=== PATIENT | male | born 1955 | race Caucasian/White ===

== ENCOUNTER 2020-10-14 15:43 | Inpatient (IN) | payer OTHER ==
[2020-10-14 18:52] LABS: VENOUS O2 SATURATION 72.5 % (70-80); VENOUS PCO2 44.3 mmHg (38-52); VENOUS PH 7.392 (7.310-7.410)
[2020-10-14 19:07] LABS: BASO % 0.3 % (0-2.0); EOS % 0.4 % (0-4.5); HEMATOCRIT 39.5 % (35.4-49); HEMOGLOBIN 13.4 GM/dL (11.7-16.9); LYMPH % 24.6 % (8-40); MCH 33.2 pg (25.7-33.7); MEAN CELL VOLUME 97.7 fl (80-96); NEUT % 63.7 % (42.8-82.8); RBC 4.05 M/mm3 (4.00-5.60); RDW 13.4 % (11.9-15.9); WHITE BLOOD COUNT 3.4 K/mm3 (4.0-10.0)
[2020-10-14 19:12] LABS: CHLORIDE 100 mmol/L (98-107); POTASSIUM 3.2 mmol/L (3.5-5.1); SODIUM 135 mmol/L (136-145)
[2020-10-14 19:13] LABS: INR 2.94 (0.83-1.09); PROTHROMBIN TIME (PATIENT) 35.1 SEC (9.7-13.0)
[2020-10-14 19:15] LABS: ACTIVATED PTT 39.6 SECONDS (25.2-36.5); CALCIUM 7.9 mg/dL (8.5-10.1)
[2020-10-14 19:16] LABS: ALBUMIN 3.3 g/dl (3.4-5.0); ANION GAP 6 MMOL/L (8-16); BLOOD UREA NITROGEN 14.7 mg/dL (7-18); CO2 30 mmol/L (21-32); GLUCOSE,RANDOM 92 mg/dL (74-106)
[2020-10-14 19:19] LABS: BILIRUBIN,DIRECT 0.1 mg/dL (0.0-0.2); CREATININE 1.2 mg/dL (0.55-1.3); SGOT/AST 63 U/L (15-37); SGPT/ALT 36 U/L (13-61)
[2020-10-14 19:20] LABS: BILIRUBIN,TOTAL 0.3 mg/dL (0.2-1)
[2020-10-14 19:21] LABS: ALK PHOS 103 U/L (45-117); N-TERMINAL BNP 849.6 pg/ml (5-125); TOT PROT 7.7 g/dl (6.4-8.2)
[2020-10-14 19:31] LABS: PLATELET COUNT 176 K/MM3 (134-434); PLATELET ESTIMATE ADEQUATE
[2020-10-14] MEDS ORDERED: SODIUM CHLORIDE 0.9% 500 ML INFUS.BAG IV ONE (19:44)
[2020-10-14] MEDS ORDERED: ACETAMINOPHEN 1000 MG/100 ML VIAL (NON FORMULARY) IVPB ONE (19:44)
[2020-10-14] MEDS ORDERED: ACETAMINOPHEN INJECTION 100 ML IVPB ONE (19:50)
[2020-10-14] MEDS ORDERED: POTASSIUM CHLORIDE ORAL LIQUID 20 MEQ/15 ML PO ONE (20:26)
[2020-10-14] MEDS ORDERED: ENOXAPARIN NA (PORCINE) 40 MG/0.4 ML DISP.SYRIN SQ SCH (20:30)
[2020-10-14 20:53] LABS: LDH 249 U/L (87-246)
[2020-10-14] MEDS ORDERED: ATORVASTATIN CA 20 MG TABLET (FP) ONE (21:34)
[2020-10-14] MEDS ORDERED: PHENobarbital 30 MG TABLET ONE (21:34)
[2020-10-14] MEDS ORDERED: ASCORBIC ACID 500 MG TABLET (FP) ONE (21:34)
[2020-10-14] MEDS ORDERED: POTASSIUM CHLORIDE ORAL LIQUID 20 MEQ/15 ML ONE (21:35)
[2020-10-14] MEDS ORDERED: carBAMazepine 200 MG TABLET ONE (21:35)
[2020-10-14] MEDS ORDERED: ZINC SULFATE 220 MG CAPSULE (FP) ONE (21:35)
[2020-10-14] MEDS: ZINC SULFATE 220 MG CAPSULE (FP) PO SCH (21:48)
[2020-10-14] MEDS: ATORVASTATIN CA 20 MG TABLET (FP) PO SCH (21:48)
[2020-10-14] MEDS: carBAMazepine 200 MG TABLET PO SCH (21:49)
[2020-10-14] MEDS: ASCORBIC ACID 500 MG TABLET (FP) PO SCH (21:49)
[2020-10-14] MEDS: PHENobarbital 30 MG TABLET PO SCH (21:49)
[2020-10-15 04:59] VITALS: BMI 65.9
[2020-10-15 05:15] LABS: INR 2.76 (0.83-1.09)
[2020-10-15] MEDS: FUROSEMIDE 40 MG TABLET (FP) PO SCH ×2 (06:08→14:41)
[2020-10-15] MEDS: carBAMazepine 200 MG TABLET PO SCH ×3 (06:08→21:43)
[2020-10-15 09:20] LABS: HEMATOCRIT 36.6 % (35.4-49); HEMOGLOBIN 12.6 GM/dL (11.7-16.9); MCH 33.3 pg (25.7-33.7); MCHC 34.4 g/dl (32.0-35.9); MEAN CELL VOLUME 96.8 fl (80-96); MEAN PLT VOLUME 7.6 fl (7.5-11.1); PLATELET COUNT 145 K/MM3 (134-434); RBC 3.78 M/mm3 (4.00-5.60); RDW 13.5 % (11.9-15.9); WHITE BLOOD COUNT 3.4 K/mm3 (4.0-10.0)
[2020-10-15] MEDS ORDERED: PT OWN MED DRAWER 7, Y5N ONE (09:21)
[2020-10-15] MEDS: ZINC SULFATE 220 MG CAPSULE (FP) PO SCH ×2 (09:39→21:41)
[2020-10-15] MEDS: ASCORBIC ACID 500 MG TABLET (FP) PO SCH ×2 (09:39→21:42)
[2020-10-15] MEDS: CYANOCOBALAMIN 1,000 MCG TABLET (FP) PO SCH (09:39)
[2020-10-15] MEDS: CLOPIDOGREL BISULFATE 75 MG TABLET (FP) PO SCH (09:39)
[2020-10-15] MEDS: CHOLECALCIFEROL (VIT D3) 1,000 UNIT (25 MCG) TABLET PO SCH (09:39)
[2020-10-15 09:43] LABS: POTASSIUM 3.4 mmol/L (3.5-5.1)
[2020-10-15 09:52] LABS: BLOOD UREA NITROGEN 13.2 mg/dL (7-18); CALCIUM 7.5 mg/dL (8.5-10.1)
[2020-10-15 09:56] LABS: CREATININE 1.1 mg/dL (0.55-1.3)
[2020-10-15] MEDS: DIGOXIN 0.25 MG TABLET (FP) PO SCH (11:31)
[2020-10-15] MEDS ORDERED: DEXTROSE 5%-WATER 100 ML IVPB ONE (14:31)
[2020-10-15] MEDS: CEFTRIAXONE 2 GM in DEXTROSE 5%-WATER 2 GM/100 ML BAG IVPB SCH (14:44)
[2020-10-15] MEDS ORDERED: REMDESIVIR 200 MG in SODIUM CHLORIDE 210 ML IVPB ONE (17:00)
[2020-10-15] MEDS: DEXAMETHASONE SOD PHOSPHATE 10 MG/1 ML VIAL IVPUSH SCH (19:49)
[2020-10-15] MEDS: VANCOMYCIN PREMIX 1.5 GM 1,500 MG/300 ML BAG IVPB SCH (19:49)
[2020-10-15] MEDS: PANTOPRAZOLE 40 MG TABLET PO SCH (19:51)
[2020-10-15] MEDS: PHENobarbital 30 MG TABLET PO SCH (21:42)
[2020-10-15] MEDS: ATORVASTATIN CA 20 MG TABLET (FP) PO SCH (21:43)
[2020-10-16] MEDS: VANCOMYCIN PREMIX 1.5 GM 1,500 MG/300 ML BAG IVPB SCH ×2 (02:07→15:01)
[2020-10-16] MEDS: carBAMazepine 200 MG TABLET PO SCH ×3 (06:25→22:16)
[2020-10-16] MEDS: FUROSEMIDE 40 MG TABLET (FP) PO SCH ×2 (06:25→15:01)
[2020-10-16 08:32] LABS: HEMATOCRIT 38.3 % (35.4-49); HEMOGLOBIN 13.3 GM/dL (11.7-16.9); MCH 33.6 pg (25.7-33.7); MCHC 34.6 g/dl (32.0-35.9); MEAN CELL VOLUME 97.2 fl (80-96); MEAN PLT VOLUME 7.6 fl (7.5-11.1); PLATELET COUNT 127 K/MM3 (134-434); RBC 3.94 M/mm3 (4.00-5.60); RDW 13.6 % (11.9-15.9); WHITE BLOOD COUNT 3.3 K/mm3 (4.0-10.0)
[2020-10-16 09:04] LABS: POTASSIUM 3.3 mmol/L (3.5-5.1)
[2020-10-16 09:13] LABS: ALBUMIN 2.9 g/dl (3.4-5.0); CALCIUM 7.4 mg/dL (8.5-10.1)
[2020-10-16 09:14] LABS: BILIRUBIN,TOTAL 0.4 mg/dL (0.2-1); TOT PROT 7.1 g/dl (6.4-8.2)
[2020-10-16 09:30] LABS: BLOOD UREA NITROGEN 11.6 mg/dL (7-18)
[2020-10-16] MEDS ORDERED: DEXTROSE 5%-WATER 100 ML IVPB ONE (09:36)
[2020-10-16] MEDS ORDERED: PT OWN MED DRAWER 7, Y5N ONE ×2 (09:36→21:59)
[2020-10-16] MEDS: ZINC SULFATE 220 MG CAPSULE (FP) PO SCH ×2 (10:04→22:18)
[2020-10-16] MEDS: CEFTRIAXONE 2 GM in DEXTROSE 5%-WATER 2 GM/100 ML BAG IVPB SCH (10:04)
[2020-10-16] MEDS: DEXAMETHASONE SOD PHOSPHATE 10 MG/1 ML VIAL IVPUSH SCH (10:04)
[2020-10-16] MEDS: PANTOPRAZOLE 40 MG TABLET PO SCH (10:05)
[2020-10-16] MEDS: CYANOCOBALAMIN 1,000 MCG TABLET (FP) PO SCH (10:05)
[2020-10-16] MEDS: CLOPIDOGREL BISULFATE 75 MG TABLET (FP) PO SCH (10:05)
[2020-10-16] MEDS: CHOLECALCIFEROL (VIT D3) 1,000 UNIT (25 MCG) TABLET PO SCH (10:06)
[2020-10-16] MEDS: DIGOXIN 0.25 MG TABLET (FP) PO SCH (10:06)
[2020-10-16] MEDS: ASCORBIC ACID 500 MG TABLET (FP) PO SCH ×2 (10:06→22:17)
[2020-10-16] MEDS: REMDESIVIR 100 MG in SODIUM CHLORIDE 230 ML IVPB SCH (17:22)
[2020-10-16] MEDS ORDERED: POTASSIUM CHLORIDE TABS 20 MEQ TABLET.ER (FP) PO ONE (19:14)
[2020-10-16] MEDS: PHENobarbital 30 MG TABLET PO SCH (22:17)
[2020-10-16] MEDS: ATORVASTATIN CA 20 MG TABLET (FP) PO SCH (22:17)
[2020-10-16] MEDS: PRAMIPEXOLE DIHYDROCHLORIDE 0.25 MG TABLET PO SCH (22:17)
[2020-10-17] MEDS ORDERED: PT OWN MED DRAWER 7, Y5N ONE ×3 (05:33→21:04)
[2020-10-17] MEDS: carBAMazepine 200 MG TABLET PO SCH ×3 (05:37→21:09)
[2020-10-17] MEDS: FUROSEMIDE 40 MG TABLET (FP) PO SCH ×2 (05:37→14:52)
[2020-10-17] MEDS ORDERED: DEXTROSE 5%-WATER 100 ML IVPB ONE (10:32)
[2020-10-17] MEDS: CEFTRIAXONE 2 GM in DEXTROSE 5%-WATER 2 GM/100 ML BAG IVPB SCH (10:47)
[2020-10-17] MEDS: PRAMIPEXOLE DIHYDROCHLORIDE 0.25 MG TABLET PO SCH ×2 (10:47→21:09)
[2020-10-17] MEDS: CYANOCOBALAMIN 1,000 MCG TABLET (FP) PO SCH (10:47)
[2020-10-17] MEDS: CLOPIDOGREL BISULFATE 75 MG TABLET (FP) PO SCH (10:47)
[2020-10-17] MEDS: PANTOPRAZOLE 40 MG TABLET PO SCH (10:47)
[2020-10-17] MEDS: ZINC SULFATE 220 MG CAPSULE (FP) PO SCH ×2 (10:47→21:09)
[2020-10-17] MEDS: ASCORBIC ACID 500 MG TABLET (FP) PO SCH ×2 (10:47→21:09)
[2020-10-17] MEDS: DEXAMETHASONE SOD PHOSPHATE 10 MG/1 ML VIAL IVPUSH SCH (10:48)
[2020-10-17] MEDS: CHOLECALCIFEROL (VIT D3) 1,000 UNIT (25 MCG) TABLET PO SCH (10:48)
[2020-10-17] MEDS: DIGOXIN 0.25 MG TABLET (FP) PO SCH (10:50)
[2020-10-17 13:06] LABS: BASO % 0.2 % (0-2.0); HEMATOCRIT 38.5 % (35.4-49); HEMOGLOBIN 13.3 GM/dL (11.7-16.9); MCH 33.6 pg (25.7-33.7); MCHC 34.5 g/dl (32.0-35.9); MEAN CELL VOLUME 97.3 fl (80-96); MONO % 6.5 % (3.8-10.2); NEUT % 83.3 % (42.8-82.8); PLATELET COUNT 150 K/MM3 (134-434); RBC 3.96 M/mm3 (4.00-5.60); RDW 13.4 % (11.9-15.9)
[2020-10-17 13:13] LABS: INR 1.9 (0.83-1.09); PROTHROMBIN TIME (PATIENT) 22.6 SEC (9.7-13.0)
[2020-10-17 13:15] LABS: ACTIVATED PTT 33.6 SECONDS (25.2-36.5)
[2020-10-17 13:49] LABS: POTASSIUM 3.1 mmol/L (3.5-5.1)
[2020-10-17 13:51] LABS: ALBUMIN 2.9 g/dl (3.4-5.0); BLOOD UREA NITROGEN 13.8 mg/dL (7-18); CALCIUM 7.8 mg/dL (8.5-10.1)
[2020-10-17 13:54] LABS: CREATININE 1.1 mg/dL (0.55-1.3)
[2020-10-17 13:56] LABS: BILIRUBIN,TOTAL 0.3 mg/dL (0.2-1); TOT PROT 6.9 g/dl (6.4-8.2)
[2020-10-17] MEDS ORDERED: POTASSIUM CHLORIDE TABS 20 MEQ TABLET.ER (FP) PO SCH (14:30)
[2020-10-17] MEDS: REMDESIVIR 100 MG in SODIUM CHLORIDE 230 ML IVPB SCH (17:21)
[2020-10-17] MEDS ORDERED: WARFARIN NA 5 MG TABLET PO SCH (18:00)
[2020-10-17] MEDS: PHENobarbital 30 MG TABLET PO SCH (21:08)
[2020-10-17] MEDS: ATORVASTATIN CA 20 MG TABLET (FP) PO SCH (21:09)
[2020-10-17] MEDS: POTASSIUM CHLORIDE TABS 20 MEQ TABLET.ER (FP) PO SCH (21:09)
[2020-10-18] MEDS: carBAMazepine 200 MG TABLET PO SCH ×3 (06:17→22:21)
[2020-10-18] MEDS: FUROSEMIDE 40 MG TABLET (FP) PO SCH ×2 (06:17→14:50)
[2020-10-18] MEDS ORDERED: DEXTROSE 5%-WATER 100 ML IVPB ONE (09:10)
[2020-10-18] MEDS ORDERED: PT OWN MED DRAWER 7, Y5N ONE ×2 (09:10→18:42)
[2020-10-18 09:24] LABS: BASO % 0.2 % (0-2.0); HEMATOCRIT 38.4 % (35.4-49); HEMOGLOBIN 13.3 GM/dL (11.7-16.9); MCH 33.7 pg (25.7-33.7); MCHC 34.8 g/dl (32.0-35.9); MEAN CELL VOLUME 96.9 fl (80-96); MONO % 9.5 % (3.8-10.2); NEUT % 63.3 % (42.8-82.8); PLATELET COUNT 149 K/MM3 (134-434); RBC 3.96 M/mm3 (4.00-5.60); RDW 13.5 % (11.9-15.9)
[2020-10-18] MEDS: ZINC SULFATE 220 MG CAPSULE (FP) PO SCH ×2 (09:24→22:18)
[2020-10-18] MEDS: PRAMIPEXOLE DIHYDROCHLORIDE 0.25 MG TABLET PO SCH ×2 (09:25→22:18)
[2020-10-18] MEDS: ASCORBIC ACID 500 MG TABLET (FP) PO SCH ×2 (09:25→22:18)
[2020-10-18] MEDS: CYANOCOBALAMIN 1,000 MCG TABLET (FP) PO SCH (09:25)
[2020-10-18] MEDS: PANTOPRAZOLE 40 MG TABLET PO SCH (09:25)
[2020-10-18] MEDS: CLOPIDOGREL BISULFATE 75 MG TABLET (FP) PO SCH (09:25)
[2020-10-18] MEDS: POTASSIUM CHLORIDE TABS 20 MEQ TABLET.ER (FP) PO SCH (09:25)
[2020-10-18] MEDS: CHOLECALCIFEROL (VIT D3) 1,000 UNIT (25 MCG) TABLET PO SCH (09:25)
[2020-10-18] MEDS: CEFTRIAXONE 2 GM in DEXTROSE 5%-WATER 2 GM/100 ML BAG IVPB SCH (09:26)
[2020-10-18] MEDS: DIGOXIN 0.25 MG TABLET (FP) PO SCH (09:26)
[2020-10-18] MEDS: DEXAMETHASONE SOD PHOSPHATE 10 MG/1 ML VIAL IVPUSH SCH (09:26)
[2020-10-18 09:44] LABS: POTASSIUM 3.1 mmol/L (3.5-5.1)
[2020-10-18 09:46] LABS: CALCIUM 7.7 mg/dL (8.5-10.1)
[2020-10-18 09:47] LABS: ALBUMIN 2.9 g/dl (3.4-5.0); BLOOD UREA NITROGEN 14.7 mg/dL (7-18)
[2020-10-18 09:50] LABS: CREATININE 0.9 mg/dL (0.55-1.3)
[2020-10-18 09:51] LABS: BILIRUBIN,TOTAL 0.9 mg/dL (0.2-1)
[2020-10-18 09:52] LABS: TOT PROT 6.9 g/dl (6.4-8.2)
[2020-10-18] MEDS ORDERED: POTASSIUM CHLORIDE TABS 20 MEQ TABLET.ER (FP) PO ONE (09:57)
[2020-10-18] MEDS: REMDESIVIR 100 MG in SODIUM CHLORIDE 230 ML IVPB SCH (16:49)
[2020-10-18] MEDS ORDERED: WARFARIN NA 10 MG TABLET PO SCH (18:00)
[2020-10-18] MEDS ORDERED: WARFARIN NA 10 MG TABLET ONE (18:03)
[2020-10-18] MEDS ORDERED: WARFARIN NA 2 MG TABLET ONE ×2 (18:03→18:04)
[2020-10-18] MEDS: WARFARIN NA PO SCH (18:21)
[2020-10-18] MEDS: POTASSIUM CHLORIDE ORAL LIQUID 20 MEQ/15 ML PO SCH ×2 (22:14→22:15)
[2020-10-18] MEDS: ATORVASTATIN CA 20 MG TABLET (FP) PO SCH (22:18)
[2020-10-18] MEDS: PHENobarbital 30 MG TABLET PO SCH (22:18)
[2020-10-19] MEDS: FUROSEMIDE 40 MG TABLET (FP) PO SCH ×2 (05:26→13:19)
[2020-10-19] MEDS: carBAMazepine 200 MG TABLET PO SCH ×3 (05:26→22:09)
[2020-10-19] MEDS ORDERED: PT OWN MED DRAWER 7, Y5N ONE ×4 (10:01→22:03)
[2020-10-19] MEDS ORDERED: DEXTROSE 5%-WATER 100 ML IVPB ONE ×2 (10:01→10:22)
[2020-10-19] MEDS: CYANOCOBALAMIN 1,000 MCG TABLET (FP) PO SCH (10:33)
[2020-10-19] MEDS: PANTOPRAZOLE 40 MG TABLET PO SCH (10:33)
[2020-10-19] MEDS: PRAMIPEXOLE DIHYDROCHLORIDE 0.25 MG TABLET PO SCH ×2 (10:33→22:07)
[2020-10-19] MEDS: ZINC SULFATE 220 MG CAPSULE (FP) PO SCH ×2 (10:33→22:07)
[2020-10-19] MEDS: ASCORBIC ACID 500 MG TABLET (FP) PO SCH ×2 (10:33→22:07)
[2020-10-19] MEDS: DEXAMETHASONE SOD PHOSPHATE 10 MG/1 ML VIAL IVPUSH SCH (10:34)
[2020-10-19] MEDS: POTASSIUM CHLORIDE ORAL LIQUID 20 MEQ/15 ML PO SCH ×2 (10:34→21:53)
[2020-10-19] MEDS: CLOPIDOGREL BISULFATE 75 MG TABLET (FP) PO SCH (10:34)
[2020-10-19] MEDS: DIGOXIN 0.25 MG TABLET (FP) PO SCH (10:34)
[2020-10-19] MEDS: CHOLECALCIFEROL (VIT D3) 1,000 UNIT (25 MCG) TABLET PO SCH (10:35)
[2020-10-19] MEDS: CEFTRIAXONE 2 GM in DEXTROSE 5%-WATER 2 GM/100 ML BAG IVPB SCH (10:35)
[2020-10-19 10:58] LABS: BASO % 0.4 % (0-2.0); EOS % 0.1 % (0-4.5); HEMATOCRIT 38.5 % (35.4-49); HEMOGLOBIN 13.4 GM/dL (11.7-16.9); LYMPH % 33.7 % (8-40); MCH 33.4 pg (25.7-33.7); MCHC 34.8 g/dl (32.0-35.9); MEAN CELL VOLUME 95.9 fl (80-96); MEAN PLT VOLUME 7.9 fl (7.5-11.1); MONO % 8.1 % (3.8-10.2); NEUT % 57.7 % (42.8-82.8); PLATELET COUNT 183 K/MM3 (134-434); RBC 4.02 M/mm3 (4.00-5.60); RDW 13.2 % (11.9-15.9); WHITE BLOOD COUNT 4.7 K/mm3 (4.0-10.0)
[2020-10-19 11:09] LABS: INR 2.26 (0.83-1.09); PROTHROMBIN TIME (PATIENT) 26.7 SEC (9.7-13.0)
[2020-10-19 11:29] LABS: POTASSIUM 3.3 mmol/L (3.5-5.1)
[2020-10-19 11:34] LABS: BLOOD UREA NITROGEN 16.8 mg/dL (7-18)
[2020-10-19 11:40] LABS: ALBUMIN 2.8 g/dl (3.4-5.0)
[2020-10-19 11:41] LABS: BILIRUBIN,TOTAL 0.7 mg/dL (0.2-1); TOT PROT 6.7 g/dl (6.4-8.2)
[2020-10-19] MEDS: REMDESIVIR 100 MG in SODIUM CHLORIDE 230 ML IVPB SCH (16:36)
[2020-10-19] MEDS ORDERED: WARFARIN NA 2 MG TABLET ONE (17:45)
[2020-10-19] MEDS ORDERED: WARFARIN NA 10 MG TABLET ONE (17:45)
[2020-10-19] MEDS ORDERED: POTASSIUM CHLORIDE TABS 20 MEQ TABLET.ER (FP) PO ONE (18:18)
[2020-10-19] MEDS: WARFARIN NA PO SCH (18:45)
[2020-10-19] MEDS: ATORVASTATIN CA 20 MG TABLET (FP) PO SCH (22:07)
[2020-10-19] MEDS: PHENobarbital 30 MG TABLET PO SCH (22:08)
[2020-10-20] MEDS: carBAMazepine 200 MG TABLET PO SCH ×3 (06:05→21:04)
[2020-10-20] MEDS: FUROSEMIDE 40 MG TABLET (FP) PO SCH ×2 (06:06→13:10)
[2020-10-20] MEDS ORDERED: PT OWN MED DRAWER 7, Y5N ONE ×3 (09:56→20:31)
[2020-10-20] MEDS ORDERED: DEXTROSE 5%-WATER 100 ML IVPB ONE (09:57)
[2020-10-20 10:02] LABS: BASO % 0.2 % (0-2.0); EOS % 0.1 % (0-4.5); HEMATOCRIT 38.2 % (35.4-49); HEMOGLOBIN 13.2 GM/dL (11.7-16.9); MCH 33.3 pg (25.7-33.7); MCHC 34.7 g/dl (32.0-35.9); MEAN PLT VOLUME 8.1 fl (7.5-11.1); MONO % 9.2 % (3.8-10.2); NEUT % 57.5 % (42.8-82.8); PLATELET COUNT 226 K/MM3 (134-434); RBC 3.98 M/mm3 (4.00-5.60); RDW 13.6 % (11.9-15.9); WHITE BLOOD COUNT 5.4 K/mm3 (4.0-10.0)
[2020-10-20 10:03] LABS: POTASSIUM 3.6 mmol/L (3.5-5.1)
[2020-10-20 10:05] LABS: INR 3.37 (0.83-1.09)
[2020-10-20] MEDS: POTASSIUM CHLORIDE ORAL LIQUID 20 MEQ/15 ML PO SCH ×2 (10:09→21:04)
[2020-10-20] MEDS: CEFTRIAXONE 2 GM in DEXTROSE 5%-WATER 2 GM/100 ML BAG IVPB SCH (10:09)
[2020-10-20] MEDS: CYANOCOBALAMIN 1,000 MCG TABLET (FP) PO SCH (10:10)
[2020-10-20] MEDS: ASCORBIC ACID 500 MG TABLET (FP) PO SCH ×2 (10:10→21:04)
[2020-10-20] MEDS: DEXAMETHASONE SOD PHOSPHATE 10 MG/1 ML VIAL IVPUSH SCH (10:10)
[2020-10-20] MEDS: PRAMIPEXOLE DIHYDROCHLORIDE 0.25 MG TABLET PO SCH ×2 (10:10→21:04)
[2020-10-20] MEDS: ZINC SULFATE 220 MG CAPSULE (FP) PO SCH ×2 (10:10→21:03)
[2020-10-20] MEDS: PANTOPRAZOLE 40 MG TABLET PO SCH (10:10)
[2020-10-20 10:11] LABS: CALCIUM 8.2 mg/dL (8.5-10.1)
[2020-10-20] MEDS: DIGOXIN 0.25 MG TABLET (FP) PO SCH (10:11)
[2020-10-20] MEDS: CLOPIDOGREL BISULFATE 75 MG TABLET (FP) PO SCH (10:11)
[2020-10-20] MEDS: CHOLECALCIFEROL (VIT D3) 1,000 UNIT (25 MCG) TABLET PO SCH (10:11)
[2020-10-20 10:15] LABS: CREATININE 0.9 mg/dL (0.55-1.3)
[2020-10-20] MEDS ORDERED: WARFARIN NA 10 MG TABLET PO SCH (18:00)
[2020-10-20] MEDS: ATORVASTATIN CA 20 MG TABLET (FP) PO SCH (21:04)
[2020-10-20] MEDS: PHENobarbital 30 MG TABLET PO SCH (21:04)
[2020-10-21] MEDS ORDERED: PT OWN MED DRAWER 7, Y5N ONE ×5 (04:56→19:53)
[2020-10-21] MEDS: CEPHALEXIN MONOHYDRATE 500 MG CAPSULE (UD) PO SCH ×3 (05:03→18:45)
[2020-10-21] MEDS: carBAMazepine 200 MG TABLET PO SCH ×2 (05:03→13:46)
[2020-10-21] MEDS: FUROSEMIDE 40 MG TABLET (FP) PO SCH ×2 (05:03→13:46)
[2020-10-21] MEDS: PANTOPRAZOLE 40 MG TABLET PO SCH (09:57)
[2020-10-21] MEDS: PRAMIPEXOLE DIHYDROCHLORIDE 0.25 MG TABLET PO SCH (09:57)
[2020-10-21] MEDS: CYANOCOBALAMIN 1,000 MCG TABLET (FP) PO SCH (09:57)
[2020-10-21] MEDS: POTASSIUM CHLORIDE ORAL LIQUID 20 MEQ/15 ML PO SCH (09:57)
[2020-10-21] MEDS: CHOLECALCIFEROL (VIT D3) 1,000 UNIT (25 MCG) TABLET PO SCH (09:57)
[2020-10-21] MEDS: ASCORBIC ACID 500 MG TABLET (FP) PO SCH (09:57)
[2020-10-21] MEDS: CLOPIDOGREL BISULFATE 75 MG TABLET (FP) PO SCH (09:57)
[2020-10-21] MEDS: ZINC SULFATE 220 MG CAPSULE (FP) PO SCH (09:57)
[2020-10-21] MEDS: DEXAMETHASONE SOD PHOSPHATE 10 MG/1 ML VIAL IVPUSH SCH (09:59)
[2020-10-21] MEDS: DIGOXIN 0.25 MG TABLET (FP) PO SCH (10:08)
[2020-10-21 10:39] LABS: PROTHROMBIN TIME (PATIENT) 52.8 SEC (9.7-13.0)
[2020-10-21 12:23] LABS: INR 4.56 (0.83-1.09)
[2020-10-21] MEDS ORDERED: BENZOCAINE/MENTH/CETYLPYRD CL 1 EACH LOZENGE MM PRN (14:39)
[2020-10-21 16:02] VITALS: BP 106/54
[2020-10-21 19:50] VITALS: PULSE 76; TEMP 97.9
== END 2020-10-21 20:03 | DRG 177 ==
LOC: JER 15:43 → JERBED 19:32 → J5S 23:26
PROVIDERS: ADMIT Hospitalist; ATTEND Internal Medicine
PROC: XW033E5 Introduction of Remdesivir Anti-infective into Peripheral Vein, Percutaneous Approach, New Technology Group 5 (ICD-10-PCS; principal; 2020-10-15)
DX: U07.1 COVID-19 (principal); J12.82 Pneumonia due to coronavirus disease 2019; J96.01 Acute respiratory failure with hypoxia; L03.115 Cellulitis of right lower limb; L03.116 Cellulitis of left lower limb; I48.21 Permanent atrial fibrillation; Z68.44 Body mass index [BMI] 60.0-69.9, adult; E87.2 Acidosis; I50.32 Chronic diastolic (congestive) heart failure; L97.518 Non-pressure chronic ulcer of other part of right foot with other specified severity; G40.909 Epilepsy, unspecified, not intractable, without status epilepticus; E66.01 Morbid (severe) obesity due to excess calories; J44.9 Chronic obstructive pulmonary disease, unspecified; I10 Essential (primary) hypertension; I87.2 Venous insufficiency (chronic) (peripheral); I25.10 Atherosclerotic heart disease of native coronary artery without angina pectoris; E78.5 Hyperlipidemia, unspecified; I25.2 Old myocardial infarction; R00.0 Tachycardia, unspecified; E87.6 Hypokalemia; I11.0 Hypertensive heart disease with heart failure; G47.33 Obstructive sleep apnea (adult) (pediatric); G56.01 Carpal tunnel syndrome, right upper limb; Z99.81 Dependence on supplemental oxygen; B95.4 Other streptococcus as the cause of diseases classified elsewhere
CPT/HCPCS: 36415; 71045-TC-FY; 80048; 80053; 80162; 80184; 82248; 82550; 82553; 82728; 82803; 83605; 83615; 83880; 84439; 84443; 84481; 84484; 85025; 85027; 85379; 85610; 85730; 86140; 86769; 87040; 87086; 87186; 87804; 93005; 93010; 97116-GP; 97162-GP; 99285-25; C9399; C9803; J0131; J1100; U0003

== ENCOUNTER 2023-03-20 16:45 | Inpatient (IN) | payer OTHER ==
[2023-03-20] MEDS ORDERED: FUROSEMIDE 40 MG/4 ML INJECTABLE VIAL IVPUSH ONE (18:15)
[2023-03-20] MEDS ORDERED: AZITHROMYCIN IVPB 500 MG in DEXTROSE 5%-WATER - 250 ML IVPB ONE (19:58)
[2023-03-20] MEDS ORDERED: CEFTRIAXONE 1 GM in DEXTROSE 5%-WATER - 100 ML IVPB ONE (19:58)
[2023-03-20] MEDS ORDERED: FUROSEMIDE 40 MG/4 ML INJECTABLE VIAL ONE ×2 (20:50→23:11)
[2023-03-20] MEDS ORDERED: AZITHROMYCIN IVPB 500 MG/250 ML BAG IVPB ONE (20:50)
[2023-03-20] MEDS ORDERED: CEFTRIAXONE 1 GM/50 ML BAG ONE (20:50)
[2023-03-20 21:06] LABS: BASO % 0.6 % (0-2.0); HEMATOCRIT 37.3 % (35.4-49); HEMOGLOBIN 12.8 GM/dL (11.7-16.9); LYMPH % 20.2 % (8-40); MCH 33.3 pg (25.7-33.7); MCHC 34.3 g/dl (32.0-35.9); MEAN PLT VOLUME 7.3 fl (7.5-11.1); MONO % 7.5 % (3.8-10.2); NEUT % 70.7 % (42.8-82.8); PLATELET COUNT 253 10^3/uL (134-434); RBC 3.85 M/mm3 (4.00-5.60); WHITE BLOOD COUNT 10.3 K/mm3 (4.0-10.0)
[2023-03-20] MEDS ORDERED: ACETAMINOPHEN 1000 MG/100 ML BAG IVPB ONE (21:41)
[2023-03-20] MEDS ORDERED: ACETAMINOPHEN INJECTION 100 ML IVPB ONE (21:54)
[2023-03-20 21:57] LABS: POTASSIUM 3.7 mmol/L (3.5-5.1)
[2023-03-20 21:58] LABS: CALCIUM 8.3 mg/dL (8.5-10.1)
[2023-03-20 21:59] LABS: ALBUMIN 3.2 g/dl (3.4-5.0); BLOOD UREA NITROGEN 13.8 mg/dL (7-18)
[2023-03-20 22:02] LABS: CREATININE 0.9 mg/dL (0.55-1.3)
[2023-03-20 22:04] LABS: BILIRUBIN,TOTAL 0.5 mg/dL (0.2-1); TOT PROT 7.5 g/dl (6.4-8.2)
[2023-03-20 22:07] LABS: N-TERMINAL BNP 980.2 pg/ml (5-125)
[2023-03-20] MEDS ORDERED: PHENobarbital 30 MG TABLET ONE (23:10)
[2023-03-20] MEDS ORDERED: WARFARIN NA 5 MG TABLET ONE (23:10)
[2023-03-20] MEDS ORDERED: carBAMazepine 200 MG TABLET ONE (23:11)
[2023-03-20] MEDS ORDERED: ACETAMINOPHEN 325 MG TABLET (FP) ONE (23:11)
[2023-03-20 23:22] LABS: BASO % 0.3 % (0-2.0); EOS % 1.2 % (0-4.5); HEMATOCRIT 35.2 % (35.4-49); HEMOGLOBIN 11.9 GM/dL (11.7-16.9); LYMPH % 21.6 % (8-40); MCH 32.8 pg (25.7-33.7); MCHC 33.9 g/dl (32.0-35.9); MEAN CELL VOLUME 96.6 fl (80-96); MEAN PLT VOLUME 7.6 fl (7.5-11.1); MONO % 7.5 % (3.8-10.2); NEUT % 69.4 % (42.8-82.8); PLATELET COUNT 235 10^3/uL (134-434); RBC 3.64 M/mm3 (4.00-5.60); RDW 13.9 % (11.9-15.9)
[2023-03-20] MEDS ORDERED: WARFARIN NA 10 MG TABLET PO ONE (23:36)
[2023-03-20 23:38] LABS: POTASSIUM 3.4 mmol/L (3.5-5.1)
[2023-03-20 23:41] LABS: CALCIUM 8.5 mg/dL (8.5-10.1)
[2023-03-20 23:42] LABS: ALBUMIN 2.9 g/dl (3.4-5.0); BLOOD UREA NITROGEN 15.3 mg/dL (7-18); MAGNESIUM 1.8 mg/dL (1.8-2.4)
[2023-03-20 23:45] LABS: CREATININE 1.1 mg/dL (0.55-1.3)
[2023-03-20 23:46] LABS: TOT PROT 6.8 g/dl (6.4-8.2)
[2023-03-20 23:47] LABS: INR 3.16 (0.83-1.09); PROTHROMBIN TIME (PATIENT) 36.2 SEC (9.7-13.0)
[2023-03-20] MEDS: FUROSEMIDE 40 MG/4 ML INJECTABLE VIAL IVPUSH SCH (23:50)
[2023-03-20] MEDS: ATORVASTATIN CA 20 MG TABLET (FP) PO SCH (23:50)
[2023-03-20] MEDS: ACETAMINOPHEN 325 MG TABLET (FP) PO PRN (23:51)
[2023-03-20] MEDS: carBAMazepine 200 MG TABLET PO SCH (23:51)
[2023-03-20] MEDS: PRAMIPEXOLE DIHYDROCHLORIDE 0.25 MG TABLET PO SCH (23:51)
[2023-03-20] MEDS: PHENobarbital 30 MG TABLET PO SCH (23:51)
[2023-03-21 00:51] LABS: BILIRUBIN,TOTAL 0.3 mg/dL (0.2-1)
[2023-03-21 02:56] VITALS: BMI 56.5
[2023-03-21] MEDS: ACETAMINOPHEN 325 MG TABLET (FP) PO PRN ×2 (04:52→18:17)
[2023-03-21] MEDS ORDERED: MAGNESIUM 1GM/D5W 100ML - 100 ML IVPB IVPB ONE ×2 (06:23→10:30)
[2023-03-21] MEDS ORDERED: MAGNESIUM SULF 50% (8.12 MEQ/2 ML-1 GM VIAL) IVPB ONE (06:23)
[2023-03-21] MEDS: KCL 10 MEQ IVPB 10 MEQ/100 ML INFUS.BAG IVPB SCH ×3 (06:46→18:17)
[2023-03-21] MEDS: carBAMazepine 200 MG TABLET PO SCH ×3 (07:55→22:46)
[2023-03-21 08:41] LABS: BASO % 0.3 % (0-2.0); EOS % 2.1 % (0-4.5); HEMOGLOBIN 11.4 GM/dL (11.7-16.9); LYMPH % 22.5 % (8-40); MCH 32.8 pg (25.7-33.7); MCHC 33.4 g/dl (32.0-35.9); MEAN CELL VOLUME 98.2 fl (80-96); MONO % 8.5 % (3.8-10.2); NEUT % 66.6 % (42.8-82.8); PLATELET COUNT 218 10^3/uL (134-434); RBC 3.46 M/mm3 (4.00-5.60); RDW 14.1 % (11.9-15.9); WHITE BLOOD COUNT 8.3 K/mm3 (4.0-10.0)
[2023-03-21 09:02] LABS: POTASSIUM 4.1 mmol/L (3.5-5.1)
[2023-03-21 09:03] LABS: CALCIUM 8.1 mg/dL (8.5-10.1)
[2023-03-21 09:04] LABS: BLOOD UREA NITROGEN 15.4 mg/dL (7-18)
[2023-03-21] MEDS ORDERED: CYANOCOBALAMIN 1,000 MCG TABLET (FP) PO SCH (10:00)
[2023-03-21] MEDS ORDERED: CLOPIDOGREL BISULFATE 75 MG TABLET (FP) PO SCH (10:00)
[2023-03-21] MEDS ORDERED: TOPIRAMATE 25 MG TABLET PO SCH (10:00)
[2023-03-21] MEDS: FUROSEMIDE 40 MG/4 ML INJECTABLE VIAL IVPUSH SCH ×2 (10:30→21:39)
[2023-03-21] MEDS: PRAMIPEXOLE DIHYDROCHLORIDE 0.25 MG TABLET PO SCH ×2 (10:34→21:40)
[2023-03-21] MEDS: SACUBITRIL/VALSARTAN 24 MG-26 MG TABLET PO SCH ×2 (15:06→21:40)
[2023-03-21] MEDS ORDERED: KCL 10 MEQ IVPB 10 MEQ/100 ML INFUS.BAG IVPB SCH (18:00)
[2023-03-21] MEDS ORDERED: WARFARIN NA 10 MG TABLET PO SCH (18:00)
[2023-03-21 19:27] LABS: MAGNESIUM 1.7 mg/dL (1.8-2.4)
[2023-03-21] MEDS: PHENobarbital 30 MG TABLET PO SCH (21:39)
[2023-03-21] MEDS: ATORVASTATIN CA 20 MG TABLET (FP) PO SCH (21:40)
[2023-03-22] MEDS: ACETAMINOPHEN 325 MG TABLET (FP) PO PRN ×3 (00:43→21:52)
[2023-03-22] MEDS: carBAMazepine 200 MG TABLET PO SCH ×3 (06:03→21:50)
[2023-03-22] MEDS: FUROSEMIDE 40 MG/4 ML INJECTABLE VIAL IVPUSH SCH ×2 (06:03→14:27)
[2023-03-22 08:54] LABS: BASO % 0.5 % (0-2.0); EOS % 2.7 % (0-4.5); HEMATOCRIT 35.4 % (35.4-49); HEMOGLOBIN 12.3 GM/dL (11.7-16.9); LYMPH % 22.8 % (8-40); MCH 33.5 pg (25.7-33.7); MCHC 34.7 g/dl (32.0-35.9); MEAN CELL VOLUME 96.4 fl (80-96); MEAN PLT VOLUME 7.4 fl (7.5-11.1); MONO % 7.9 % (3.8-10.2); NEUT % 66.1 % (42.8-82.8); PLATELET COUNT 227 10^3/uL (134-434); RBC 3.67 M/mm3 (4.00-5.60); RDW 14.2 % (11.9-15.9)
[2023-03-22 09:24] LABS: POTASSIUM 3.7 mmol/L (3.5-5.1)
[2023-03-22] MEDS: PRAMIPEXOLE DIHYDROCHLORIDE 0.25 MG TABLET PO SCH ×2 (09:33→21:49)
[2023-03-22] MEDS: TOPIRAMATE 25 MG TABLET PO SCH (09:34)
[2023-03-22] MEDS: CYANOCOBALAMIN 1,000 MCG TABLET (FP) PO SCH (09:34)
[2023-03-22] MEDS: CLOPIDOGREL BISULFATE 75 MG TABLET (FP) PO SCH (09:34)
[2023-03-22] MEDS ORDERED: SACUBITRIL/VALSARTAN 24 MG-26 MG TABLET PO SCH (10:00)
[2023-03-22 10:05] LABS: CREATININE 0.8 mg/dL (0.55-1.3)
[2023-03-22 10:06] LABS: BLOOD UREA NITROGEN 12.7 mg/dL (7-18)
[2023-03-22 10:07] LABS: CALCIUM 8.4 mg/dL (8.5-10.1)
[2023-03-22 14:10] LABS: INR 3.53 (0.83-1.09); PROTHROMBIN TIME (PATIENT) 40.4 SEC (9.7-13.0)
[2023-03-22] MEDS: SPIRONOLACTONE 25 MG TABLET PO SCH (14:27)
[2023-03-22] MEDS: AMMONIUM LACTATE 12% LOTION 225 GM BOTTLE TP SCH ×2 (17:29→21:59)
[2023-03-22] MEDS: WARFARIN NA 10 MG TABLET PO SCH (17:30)
[2023-03-22] MEDS: KETOCONAZOLE 2% CREAM - 60GM TUBE TP SCH (17:30)
[2023-03-22] MEDS: DIGOXIN 0.25 MG TABLET PO SCH (17:31)
[2023-03-22] MEDS: KCL 10 MEQ IVPB 10 MEQ/100 ML INFUS.BAG IVPB SCH ×4 (17:31→19:08)
[2023-03-22] MEDS: ATORVASTATIN CA 20 MG TABLET (FP) PO SCH (21:49)
[2023-03-22] MEDS: PHENobarbital 30 MG TABLET PO SCH (21:50)
[2023-03-23] MEDS: carBAMazepine 200 MG TABLET PO SCH ×3 (06:36→21:35)
[2023-03-23] MEDS: FUROSEMIDE 40 MG/4 ML INJECTABLE VIAL IVPUSH SCH (06:36)
[2023-03-23 09:16] LABS: BASO % 0.6 % (0-2.0); EOS % 2.5 % (0-4.5); HEMATOCRIT 37.5 % (35.4-49); HEMOGLOBIN 12.9 GM/dL (11.7-16.9); LYMPH % 22.9 % (8-40); MCH 33.6 pg (25.7-33.7); MCHC 34.2 g/dl (32.0-35.9); MEAN PLT VOLUME 7.4 fl (7.5-11.1); MONO % 8.5 % (3.8-10.2); NEUT % 65.5 % (42.8-82.8); PLATELET COUNT 254 10^3/uL (134-434); RBC 3.83 M/mm3 (4.00-5.60); RDW 14.5 % (11.9-15.9); WHITE BLOOD COUNT 8.4 K/mm3 (4.0-10.0)
[2023-03-23 09:34] LABS: POTASSIUM 4.1 mmol/L (3.5-5.1)
[2023-03-23 09:35] LABS: CALCIUM 8.7 mg/dL (8.5-10.1)
[2023-03-23 09:36] LABS: BLOOD UREA NITROGEN 16.2 mg/dL (7-18)
[2023-03-23 09:39] LABS: CREATININE 1.1 mg/dL (0.55-1.3)
[2023-03-23] MEDS: TOPIRAMATE 25 MG TABLET PO SCH (09:56)
[2023-03-23] MEDS: CLOPIDOGREL BISULFATE 75 MG TABLET (FP) PO SCH (09:57)
[2023-03-23] MEDS: PRAMIPEXOLE DIHYDROCHLORIDE 0.25 MG TABLET PO SCH ×2 (09:57→21:36)
[2023-03-23] MEDS: CYANOCOBALAMIN 1,000 MCG TABLET (FP) PO SCH (09:57)
[2023-03-23] MEDS: SPIRONOLACTONE 25 MG TABLET PO SCH (09:57)
[2023-03-23] MEDS: DIGOXIN 0.25 MG TABLET PO SCH (09:57)
[2023-03-23] MEDS: KETOCONAZOLE 2% CREAM - 60GM TUBE TP SCH (09:58)
[2023-03-23] MEDS: AMMONIUM LACTATE 12% LOTION 225 GM BOTTLE TP SCH ×2 (09:58→21:36)
[2023-03-23] MEDS: ACETAMINOPHEN 325 MG TABLET (FP) PO PRN ×2 (10:03→21:40)
[2023-03-23 11:11] LABS: INR 3.35 (0.83-1.09); PROTHROMBIN TIME (PATIENT) 38.4 SEC (9.7-13.0)
[2023-03-23] MEDS: FUROSEMIDE 40 MG TABLET (FP) PO SCH (13:21)
[2023-03-23] MEDS: WARFARIN NA 10 MG TABLET PO SCH (18:01)
[2023-03-23] MEDS: PHENobarbital 30 MG TABLET PO SCH (21:34)
[2023-03-23] MEDS: ATORVASTATIN CA 20 MG TABLET (FP) PO SCH (21:36)
[2023-03-24] MEDS: FUROSEMIDE 40 MG TABLET (FP) PO SCH ×2 (06:00→14:02)
[2023-03-24] MEDS: carBAMazepine 200 MG TABLET PO SCH ×3 (06:15→21:13)
[2023-03-24] MEDS: ACETAMINOPHEN 325 MG TABLET (FP) PO PRN ×2 (07:48→21:17)
[2023-03-24 08:46] LABS: BASO % 0.6 % (0-2.0); EOS % 2.8 % (0-4.5); HEMATOCRIT 39.8 % (35.4-49); HEMOGLOBIN 13.5 GM/dL (11.7-16.9); MCHC 33.9 g/dl (32.0-35.9); MEAN CELL VOLUME 97.2 fl (80-96); MEAN PLT VOLUME 7.3 fl (7.5-11.1); MONO % 7.4 % (3.8-10.2); NEUT % 61.2 % (42.8-82.8); PLATELET COUNT 250 10^3/uL (134-434); RBC 4.09 M/mm3 (4.00-5.60); RDW 14.1 % (11.9-15.9); WHITE BLOOD COUNT 7.6 K/mm3 (4.0-10.0)
[2023-03-24 09:08] LABS: CALCIUM 8.6 mg/dL (8.5-10.1)
[2023-03-24 09:09] LABS: BLOOD UREA NITROGEN 17.1 mg/dL (7-18)
[2023-03-24 09:12] LABS: CREATININE 0.9 mg/dL (0.55-1.3)
[2023-03-24] MEDS: SPIRONOLACTONE 25 MG TABLET PO SCH (09:49)
[2023-03-24] MEDS: DIGOXIN 0.25 MG TABLET PO SCH (09:49)
[2023-03-24] MEDS: PRAMIPEXOLE DIHYDROCHLORIDE 0.25 MG TABLET PO SCH ×2 (09:51→21:13)
[2023-03-24] MEDS: CLOPIDOGREL BISULFATE 75 MG TABLET (FP) PO SCH (09:51)
[2023-03-24] MEDS: TOPIRAMATE 25 MG TABLET PO SCH (09:51)
[2023-03-24] MEDS: CYANOCOBALAMIN 1,000 MCG TABLET (FP) PO SCH (09:51)
[2023-03-24] MEDS: KETOCONAZOLE 2% CREAM - 60GM TUBE TP SCH (09:52)
[2023-03-24] MEDS: AMMONIUM LACTATE 12% LOTION 225 GM BOTTLE TP SCH ×2 (09:52→21:13)
[2023-03-24 13:51] LABS: INR 3.1 (0.83-1.09); PROTHROMBIN TIME (PATIENT) 35.6 SEC (9.7-13.0)
[2023-03-24] MEDS: WARFARIN NA 10 MG TABLET PO SCH (18:26)
[2023-03-24] MEDS: PHENobarbital 30 MG TABLET PO SCH (21:12)
[2023-03-24] MEDS: ATORVASTATIN CA 20 MG TABLET (FP) PO SCH (21:13)
[2023-03-25] MEDS: FUROSEMIDE 40 MG TABLET (FP) PO SCH ×2 (05:39→13:07)
[2023-03-25] MEDS: carBAMazepine 200 MG TABLET PO SCH ×2 (05:39→13:08)
[2023-03-25] MEDS: ACETAMINOPHEN 325 MG TABLET (FP) PO PRN (05:42)
[2023-03-25 07:52] LABS: BASO % 0.5 % (0-2.0); EOS % 2.9 % (0-4.5); HEMATOCRIT 38.6 % (35.4-49); HEMOGLOBIN 12.8 GM/dL (11.7-16.9); MCH 32.7 pg (25.7-33.7); MCHC 33.3 g/dl (32.0-35.9); MEAN CELL VOLUME 98.3 fl (80-96); MEAN PLT VOLUME 7.7 fl (7.5-11.1); MONO % 7.7 % (3.8-10.2); NEUT % 67.9 % (42.8-82.8); PLATELET COUNT 260 10^3/uL (134-434); RBC 3.93 M/mm3 (4.00-5.60); RDW 14.1 % (11.9-15.9); WHITE BLOOD COUNT 7.6 K/mm3 (4.0-10.0)
[2023-03-25 08:24] LABS: BLOOD UREA NITROGEN 17.5 mg/dL (7-18); CALCIUM 8.9 mg/dL (8.5-10.1); MAGNESIUM 2.1 mg/dL (1.8-2.4); POTASSIUM 4.1 mmol/L (3.5-5.1)
[2023-03-25 10:11] VITALS: BP 143/71; PULSE 100; RESP 18; TEMP 97.7
[2023-03-25] MEDS: DIGOXIN 0.25 MG TABLET PO SCH (10:14)
[2023-03-25] MEDS: CLOPIDOGREL BISULFATE 75 MG TABLET (FP) PO SCH (10:14)
[2023-03-25] MEDS: SPIRONOLACTONE 25 MG TABLET PO SCH (10:14)
[2023-03-25] MEDS: PRAMIPEXOLE DIHYDROCHLORIDE 0.25 MG TABLET PO SCH (10:15)
[2023-03-25] MEDS: CYANOCOBALAMIN 1,000 MCG TABLET (FP) PO SCH (10:15)
[2023-03-25] MEDS: TOPIRAMATE 25 MG TABLET PO SCH (10:16)
[2023-03-25] MEDS: KETOCONAZOLE 2% CREAM - 60GM TUBE TP SCH (10:16)
[2023-03-25] MEDS: AMMONIUM LACTATE 12% LOTION 225 GM BOTTLE TP SCH (10:17)
[2023-03-25 12:02] LABS: INR 2.82 (0.83-1.09); PROTHROMBIN TIME (PATIENT) 32.4 SEC (9.7-13.0)
== END 2023-03-25 13:40 | disposition home or self-care (01) | DRG 291 ==
LOC: JER 16:45 → JERBED 21:50 → J8W 03-21 01:43 → J4W 03-21 18:47
PROVIDERS: ADMIT Internal Medicine; ATTEND Internal Medicine
DX: I11.0 Hypertensive heart disease with heart failure (principal); I50.33 Acute on chronic diastolic (congestive) heart failure; I48.20 Chronic atrial fibrillation, unspecified; J44.1 Chronic obstructive pulmonary disease with (acute) exacerbation; I48.92 Unspecified atrial flutter; Z68.43 Body mass index [BMI] 50.0-59.9, adult; G40.909 Epilepsy, unspecified, not intractable, without status epilepticus; Z79.01 Long term (current) use of anticoagulants; I25.2 Old myocardial infarction; E78.5 Hyperlipidemia, unspecified; G47.33 Obstructive sleep apnea (adult) (pediatric); I25.10 Atherosclerotic heart disease of native coronary artery without angina pectoris; Z99.81 Dependence on supplemental oxygen; I35.0 Nonrheumatic aortic (valve) stenosis; I87.2 Venous insufficiency (chronic) (peripheral); E83.42 Hypomagnesemia; E87.6 Hypokalemia; E27.8 Other specified disorders of adrenal gland
CPT/HCPCS: 0241U-QW; 36415; 71045-TC-FY; 71250-TC; 80048; 80053; 80061; 82550; 82553; 83036; 83735; 83880; 84100; 84443; 84484; 85025; 85610; 93005; 93010; 93306-TC; 97116-GP; 97161-GP; 99285-25

== ENCOUNTER 2023-04-01 22:10 | Inpatient (IN) | payer OTHER ==
[2023-04-01] MEDS ORDERED: PIPERACILLIN/TAZOB 4.5 GM 4.5 GM in DEXTROSE 5%-WATER 100 ML IVPB ONE (22:55)
[2023-04-01] MEDS ORDERED: morphine CARPU-JECT 2 MG/1 ML DISP.SYRIN IM ONE (23:31)
[2023-04-01] MEDS ORDERED: ONDANSETRON 4 MG/2 ML VIAL IVPUSH ONE (23:31)
[2023-04-01] MEDS ORDERED: KETOROLAC TROMETHAMINE 15 MG/ML VIAL IM ONE (23:31)
[2023-04-01] MEDS ORDERED: morphine CARPU-JECT 4 MG/1 ML DISP.SYRIN IVPUSH ONE (23:32)
[2023-04-02] MEDS ORDERED: ONDANSETRON 4 MG/2 ML VIAL ONE ×2 (00:26→08:59)
[2023-04-02] MEDS ORDERED: KETOROLAC TROMETHAMINE 15 MG/ML VIAL ONE (00:26)
[2023-04-02] MEDS ORDERED: morphine SULFATE 4 MG/ML VIAL ONE ×2 (00:26→08:59)
[2023-04-02] MEDS ORDERED: PIPERACILLIN/TAZOB 4.5 GM 4.5 GM/100 ML BAG IVPB ONE ×2 (00:27→15:46)
[2023-04-02 02:07] LABS: BASO % 0.5 % (0-2.0); EOS % 1.8 % (0-4.5); HEMATOCRIT 37.1 % (35.4-49); HEMOGLOBIN 12.6 GM/dL (11.7-16.9); LYMPH % 13.6 % (8-40); MCH 32.9 pg (25.7-33.7); MEAN CELL VOLUME 96.9 fl (80-96); MEAN PLT VOLUME 7.5 fl (7.5-11.1); MONO % 8.1 % (3.8-10.2); PLATELET COUNT 284 10^3/uL (134-434); RBC 3.83 M/mm3 (4.00-5.60); RDW 13.8 % (11.9-15.9); WHITE BLOOD COUNT 12.5 K/mm3 (4.0-10.0)
[2023-04-02 02:30] LABS: POTASSIUM 3.4 mmol/L (3.5-5.1)
[2023-04-02 02:33] LABS: ALBUMIN 2.8 g/dl (3.4-5.0); BLOOD UREA NITROGEN 16.8 mg/dL (7-18)
[2023-04-02 02:36] LABS: CREATININE 1.1 mg/dL (0.55-1.3)
[2023-04-02 02:38] LABS: TOT PROT 6.4 g/dl (6.4-8.2)
[2023-04-02 02:42] LABS: BILIRUBIN,TOTAL 0.2 mg/dL (0.2-1); CALCIUM 7.5 mg/dL (8.5-10.1); LACTIC ACID 3.9 mmol/L (0.4-2.0)
[2023-04-02] MEDS ORDERED: ACETAMINOPHEN 1000 MG/100 ML BAG IVPB ONE (05:08)
[2023-04-02] MEDS ORDERED: ACETAMINOPHEN INJECTION 100 ML IVPB ONE (05:10)
[2023-04-02] MEDS ORDERED: morphine CARPU-JECT 4 MG/1 ML DISP.SYRIN IVPUSH ONE (08:51)
[2023-04-02] MEDS ORDERED: ONDANSETRON 4 MG/2 ML VIAL IVPUSH ONE (08:51)
[2023-04-02] MEDS ORDERED: ACETAMINOPHEN 325 MG TABLET (FP) PO PRN (09:13)
[2023-04-02] MEDS ORDERED: D5-1/2NS+10 MEQ KCL - 10 MEQ/1,000 ML INFUS.BAG IV SCH (09:15)
[2023-04-02] MEDS ORDERED: FUROSEMIDE 40 MG TABLET (FP) PO SCH (10:00)
[2023-04-02] MEDS ORDERED: PRAMIPEXOLE DIHYDROCHLORIDE 0.25 MG TABLET PO SCH (10:00)
[2023-04-02] MEDS ORDERED: DIGOXIN 0.25 MG TABLET ONE (11:28)
[2023-04-02] MEDS ORDERED: SPIRONOLACTONE 25 MG TABLET ONE (11:28)
[2023-04-02] MEDS ORDERED: TOPIRAMATE 25 MG TABLET ONE (11:28)
[2023-04-02] MEDS ORDERED: FUROSEMIDE 40 MG/4 ML INJECTABLE VIAL ONE (11:29)
[2023-04-02] MEDS ORDERED: CLOPIDOGREL BISULFATE 75 MG TABLET (FP) ONE (11:39)
[2023-04-02] MEDS: CYANOCOBALAMIN 1,000 MCG TABLET (FP) PO SCH (11:59)
[2023-04-02] MEDS: SPIRONOLACTONE 25 MG TABLET PO SCH (11:59)
[2023-04-02] MEDS: DIGOXIN 0.25 MG TABLET PO SCH (11:59)
[2023-04-02] MEDS: FUROSEMIDE 40 MG/4 ML INJECTABLE VIAL IVPUSH SCH ×2 (11:59→15:29)
[2023-04-02] MEDS: CLOPIDOGREL BISULFATE 75 MG TABLET (FP) PO SCH (11:59)
[2023-04-02] MEDS: TOPIRAMATE 25 MG TABLET PO SCH (12:00)
[2023-04-02] MEDS ORDERED: PANTOPRAZOLE 40 MG TABLET PO ONE (13:08)
[2023-04-02] MEDS ORDERED: carBAMazepine 200 MG TABLET ONE ×2 (13:08→19:47)
[2023-04-02] MEDS: carBAMazepine 200 MG TABLET PO SCH ×2 (13:11→20:01)
[2023-04-02] MEDS: PANTOPRAZOLE 40 MG TABLET PO SCH (13:11)
[2023-04-02] MEDS ORDERED: VANCOMYCIN/WATER 1250 MG 1,250 MG/250 ML BAG IVPB ONE (15:45)
[2023-04-02] MEDS: PIPERACILLIN/TAZOB 4.5 GM 4.5 GM in DEXTROSE 5%-WATER 100 ML IVPB SCH ×2 (16:19→18:59)
[2023-04-02] MEDS: VANCOMYCIN/WATER 1250 MG 1,250 MG/250 ML BAG IVPB SCH (17:46)
[2023-04-02] MEDS: KETOCONAZOLE 2% CREAM - 60GM TUBE TP SCH (17:47)
[2023-04-02] MEDS ORDERED: WARFARIN NA PO SCH (18:00)
[2023-04-02] MEDS ORDERED: WARFARIN NA 10 MG TABLET PO SCH (18:00)
[2023-04-02] MEDS: D5-1/2NS+10 MEQ KCL - 10 MEQ/1,000 ML INFUS.BAG IV SCH (20:00)
[2023-04-02] MEDS ORDERED: ATORVASTATIN CA 20 MG TABLET (FP) PO SCH (22:00)
[2023-04-02] MEDS ORDERED: ATORVASTATIN CA 20 MG TABLET (FP) ONE (22:00)
[2023-04-02] MEDS ORDERED: PHENobarbital 30 MG TABLET ONE (22:01)
[2023-04-02] MEDS ORDERED: WARFARIN NA 5 MG TABLET PO SCH (22:01)
[2023-04-02] MEDS: PHENobarbital 30 MG TABLET PO SCH (22:36)
[2023-04-02] MEDS: WARFARIN NA 5 MG TABLET PO SCH (22:37)
[2023-04-03] MEDS ORDERED: ATORVASTATIN CA 40 MG TABLET (FP) ONE (00:26)
[2023-04-03] MEDS: PRAMIPEXOLE DIHYDROCHLORIDE 1 MG TABLET PO SCH (00:34)
[2023-04-03] MEDS: ATORVASTATIN CA 40 MG TABLET (FP) PO SCH (00:34)
[2023-04-03] MEDS ORDERED: PIPERACILLIN/TAZOB 4.5 GM 4.5 GM/100 ML BAG IVPB ONE ×2 (02:00→07:59)
[2023-04-03] MEDS: PIPERACILLIN/TAZOB 4.5 GM 4.5 GM in DEXTROSE 5%-WATER 100 ML IVPB SCH ×3 (02:13→17:58)
[2023-04-03] MEDS ORDERED: VANCOMYCIN/WATER 1250 MG 1,250 MG/250 ML BAG IVPB ONE ×3 (02:56→15:35)
[2023-04-03] MEDS: VANCOMYCIN/WATER 1250 MG 1,250 MG/250 ML BAG IVPB SCH ×2 (03:02→15:45)
[2023-04-03] MEDS ORDERED: FUROSEMIDE 40 MG/4 ML INJECTABLE VIAL ONE ×2 (06:17→13:30)
[2023-04-03] MEDS: FUROSEMIDE 40 MG/4 ML INJECTABLE VIAL IVPUSH SCH ×2 (06:38→13:33)
[2023-04-03] MEDS: carBAMazepine 200 MG TABLET PO SCH ×3 (08:13→17:58)
[2023-04-03 08:32] LABS: BASO % 0.4 % (0-2.0); EOS % 3.9 % (0-4.5); HEMATOCRIT 34.9 % (35.4-49); HEMOGLOBIN 11.8 GM/dL (11.7-16.9); LYMPH % 11.6 % (8-40); MCH 32.5 pg (25.7-33.7); MCHC 33.9 g/dl (32.0-35.9); MEAN CELL VOLUME 95.9 fl (80-96); MEAN PLT VOLUME 7.1 fl (7.5-11.1); MONO % 9.2 % (3.8-10.2); NEUT % 74.9 % (42.8-82.8); PLATELET COUNT 262 10^3/uL (134-434); RBC 3.64 M/mm3 (4.00-5.60); RDW 13.9 % (11.9-15.9); WHITE BLOOD COUNT 11.2 K/mm3 (4.0-10.0)
[2023-04-03 09:11] LABS: POTASSIUM 3.5 mmol/L (3.5-5.1)
[2023-04-03 09:12] LABS: CALCIUM 7.5 mg/dL (8.5-10.1)
[2023-04-03 09:13] LABS: ALBUMIN 2.3 g/dl (3.4-5.0); BLOOD UREA NITROGEN 9.7 mg/dL (7-18); MAGNESIUM 1.9 mg/dL (1.8-2.4)
[2023-04-03] MEDS: SPIRONOLACTONE 25 MG TABLET PO SCH (09:14)
[2023-04-03] MEDS: DIGOXIN 0.25 MG TABLET PO SCH (09:14)
[2023-04-03] MEDS: TOPIRAMATE 25 MG TABLET PO SCH (09:15)
[2023-04-03] MEDS: CLOPIDOGREL BISULFATE 75 MG TABLET (FP) PO SCH (09:15)
[2023-04-03] MEDS: PANTOPRAZOLE 40 MG TABLET PO SCH (09:15)
[2023-04-03] MEDS: CYANOCOBALAMIN 1,000 MCG TABLET (FP) PO SCH (09:15)
[2023-04-03 09:16] LABS: CREATININE 0.9 mg/dL (0.55-1.3)
[2023-04-03 09:18] LABS: BILIRUBIN,TOTAL 0.4 mg/dL (0.2-1); TOT PROT 5.8 g/dl (6.4-8.2)
[2023-04-03] MEDS ORDERED: PRAMIPEXOLE DIHYDROCHLORIDE 0.25 MG TABLET PO SCH (10:00)
[2023-04-03] MEDS: KCL 10 MEQ IVPB 10 MEQ/100 ML INFUS.BAG IVPB SCH ×3 (10:00→11:46)
[2023-04-03 10:01] LABS: ERYTHROCYTE SEDIMENTATION RATE 102 mm/hr (0-20)
[2023-04-03] MEDS ORDERED: PRAMIPEXOLE DIHYDROCHLORIDE 1 MG TABLET PO SCH (10:45)
[2023-04-03] MEDS ORDERED: KCL 10 MEQ IVPB 10 MEQ/100 ML INFUS.BAG IVPB ONE (11:03)
[2023-04-03] MEDS ORDERED: KCL 10 MEQ IVPB 20 MEQ/200 ML INFUS.BAG IVPB ONE ×2 (11:13→11:46)
[2023-04-03] MEDS ORDERED: CHOLECALCIFEROL (VIT D3) 1,000 UNIT (25 MCG) TABLET ONE (11:13)
[2023-04-03] MEDS ORDERED: ASCORBIC ACID 500 MG TABLET (FP) ONE (11:13)
[2023-04-03] MEDS ORDERED: MAGNESIUM 1GM/D5W - 1 GM/100 ML IVPB IVPB ONE ×2 (11:13→11:46)
[2023-04-03] MEDS ORDERED: ZINC SULFATE 220 MG CAPSULE (FP) ONE (11:13)
[2023-04-03] MEDS: KETOCONAZOLE 2% CREAM - 60GM TUBE TP SCH (11:15)
[2023-04-03] MEDS ORDERED: MAGNESIUM 1GM/D5W 100ML - 100 ML IVPB IVPB ONE (11:30)
[2023-04-03] MEDS: ASCORBIC ACID 500 MG TABLET (FP) PO SCH (11:30)
[2023-04-03] MEDS: CHOLECALCIFEROL (VIT D3) 5000 UNITS (125 MCG) CAP PO SCH (11:30)
[2023-04-03] MEDS: ZINC SULFATE 220 MG CAPSULE (FP) PO SCH (11:30)
[2023-04-03] MEDS: VITAMIN A 10,000 UNITS (3000 MCG) CAPSULE PO SCH (11:31)
[2023-04-03] MEDS ORDERED: carBAMazepine 200 MG TABLET ONE (11:48)
[2023-04-03] MEDS ORDERED: ACETAMINOPHEN 325 MG TABLET (FP) ONE (14:09)
[2023-04-03] MEDS: D5-1/2NS+10 MEQ KCL - 10 MEQ/1,000 ML INFUS.BAG IV SCH (15:45)
[2023-04-03 17:56] LABS: PROTHROMBIN TIME (PATIENT) 51.8 SEC (9.7-13.0)
[2023-04-03] MEDS: WARFARIN NA 5 MG TABLET PO SCH (17:58)
[2023-04-03 18:08] LABS: INR 4.53 (0.83-1.09)
[2023-04-03] MEDS ORDERED: methylPREDNISolone NA SUCC 40 MG/1 ML VIAL IVPB ONE (19:28)
[2023-04-03] MEDS ORDERED: methylPREDNISolone NA SUCC 40 MG/1 ML VIAL ONE (19:32)
[2023-04-04] MEDS: ATORVASTATIN CA 40 MG TABLET (FP) PO SCH (00:21)
[2023-04-04] MEDS: PRAMIPEXOLE DIHYDROCHLORIDE 1 MG TABLET PO SCH ×2 (00:21→22:12)
[2023-04-04] MEDS: PHENobarbital 30 MG TABLET PO SCH ×2 (00:22→22:12)
[2023-04-04] MEDS: ASCORBIC ACID 500 MG TABLET (FP) PO SCH ×3 (00:22→22:12)
[2023-04-04] MEDS: PIPERACILLIN/TAZOB 4.5 GM 4.5 GM in DEXTROSE 5%-WATER 100 ML IVPB SCH ×2 (01:20→10:08)
[2023-04-04] MEDS: FUROSEMIDE 40 MG/4 ML INJECTABLE VIAL IVPUSH SCH ×2 (06:13→10:09)
[2023-04-04] MEDS: ACETAMINOPHEN 325 MG TABLET (FP) PO PRN (06:14)
[2023-04-04] MEDS: carBAMazepine 200 MG TABLET PO SCH ×3 (10:07→17:54)
[2023-04-04] MEDS: SPIRONOLACTONE 25 MG TABLET PO SCH (10:09)
[2023-04-04] MEDS: TOPIRAMATE 25 MG TABLET PO SCH (10:09)
[2023-04-04] MEDS: ZINC SULFATE 220 MG CAPSULE (FP) PO SCH (10:09)
[2023-04-04] MEDS: CYANOCOBALAMIN 1,000 MCG TABLET (FP) PO SCH (10:09)
[2023-04-04] MEDS: PANTOPRAZOLE 40 MG TABLET PO SCH (10:09)
[2023-04-04] MEDS: CLOPIDOGREL BISULFATE 75 MG TABLET (FP) PO SCH (10:09)
[2023-04-04] MEDS: VITAMIN A 10,000 UNITS (3000 MCG) CAPSULE PO SCH (10:10)
[2023-04-04] MEDS: CHOLECALCIFEROL (VIT D3) 5000 UNITS (125 MCG) CAP PO SCH (10:10)
[2023-04-04] MEDS: KETOCONAZOLE 2% CREAM - 60GM TUBE TP SCH (10:12)
[2023-04-04 12:56] LABS: BASO % 0.5 % (0-2.0); EOS % 3.4 % (0-4.5); HEMATOCRIT 35.8 % (35.4-49); HEMOGLOBIN 12.2 GM/dL (11.7-16.9); LYMPH % 9.2 % (8-40); MCH 32.6 pg (25.7-33.7); MEAN CELL VOLUME 95.8 fl (80-96); MEAN PLT VOLUME 7.3 fl (7.5-11.1); MONO % 6.8 % (3.8-10.2); NEUT % 80.1 % (42.8-82.8); PLATELET COUNT 272 10^3/uL (134-434); RBC 3.73 M/mm3 (4.00-5.60); RDW 13.7 % (11.9-15.9); WHITE BLOOD COUNT 12.8 K/mm3 (4.0-10.0)
[2023-04-04 13:07] LABS: PROTHROMBIN TIME (PATIENT) 56.6 SEC (9.7-13.0)
[2023-04-04] MEDS: DIGOXIN 0.25 MG TABLET PO SCH (13:08)
[2023-04-04 13:19] LABS: INR 4.96 (0.83-1.09)
[2023-04-04 13:31] LABS: POTASSIUM 3.1 mmol/L (3.5-5.1)
[2023-04-04 13:43] LABS: BLOOD UREA NITROGEN 11.2 mg/dL (7-18); CALCIUM 7.9 mg/dL (8.5-10.1)
[2023-04-04 13:44] LABS: MAGNESIUM 1.9 mg/dL (1.8-2.4)
[2023-04-04] MEDS ORDERED: KETOCONAZOLE 200 MG TABLET PO SCH (13:45)
[2023-04-04 13:46] LABS: CREATININE 0.8 mg/dL (0.55-1.3)
[2023-04-04] MEDS: POTASSIUM CHLORIDE TABS 20 MEQ TABLET.ER (FP) PO SCH (14:21)
[2023-04-04] MEDS: KCL 10 MEQ IVPB 10 MEQ/100 ML INFUS.BAG IVPB SCH ×3 (14:46→16:59)
[2023-04-04] MEDS ORDERED: FLUCONAZOLE 100 MG TABLET (UD) PO SCH (15:30)
[2023-04-04] MEDS: DAPTOMYCIN 700 MG in SODIUM CHLORIDE 50 ML IVPB SCH (16:59)
[2023-04-04] MEDS: methylPREDNISolone NA SUCC 40 MG/1 ML VIAL IVPB SCH (17:01)
[2023-04-04] MEDS: D5-1/2NS+10 MEQ KCL - 10 MEQ/1,000 ML INFUS.BAG IV SCH (17:48)
[2023-04-05] MEDS: methylPREDNISolone NA SUCC 40 MG/1 ML VIAL IVPB SCH ×3 (01:55→21:26)
[2023-04-05] MEDS ORDERED: methylPREDNISolone NA SUCC 40 MG/1 ML VIAL IVPB SCH (05:30)
[2023-04-05] MEDS: FUROSEMIDE 40 MG/4 ML INJECTABLE VIAL IVPUSH SCH ×2 (09:38→21:26)
[2023-04-05] MEDS: ASCORBIC ACID 500 MG TABLET (FP) PO SCH ×2 (09:39→21:26)
[2023-04-05] MEDS: CYANOCOBALAMIN 1,000 MCG TABLET (FP) PO SCH (09:39)
[2023-04-05] MEDS: ZINC SULFATE 220 MG CAPSULE (FP) PO SCH (09:39)
[2023-04-05] MEDS: PANTOPRAZOLE 40 MG TABLET PO SCH (09:39)
[2023-04-05] MEDS: TOPIRAMATE 25 MG TABLET PO SCH (09:39)
[2023-04-05] MEDS: POTASSIUM CHLORIDE TABS 20 MEQ TABLET.ER (FP) PO SCH (09:39)
[2023-04-05] MEDS: SPIRONOLACTONE 25 MG TABLET PO SCH (09:39)
[2023-04-05] MEDS: CLOPIDOGREL BISULFATE 75 MG TABLET (FP) PO SCH (09:39)
[2023-04-05] MEDS: DIGOXIN 0.25 MG TABLET PO SCH (09:40)
[2023-04-05] MEDS: CHOLECALCIFEROL (VIT D3) 5000 UNITS (125 MCG) CAP PO SCH (09:40)
[2023-04-05] MEDS: VITAMIN A 10,000 UNITS (3000 MCG) CAPSULE PO SCH (09:41)
[2023-04-05] MEDS: carBAMazepine 200 MG TABLET PO SCH ×3 (09:41→17:32)
[2023-04-05 10:08] LABS: BASO % 0.3 % (0-2.0); EOS % 0.4 % (0-4.5); HEMATOCRIT 35.5 % (35.4-49); HEMOGLOBIN 11.9 GM/dL (11.7-16.9); MCH 32.6 pg (25.7-33.7); MCHC 33.4 g/dl (32.0-35.9); MEAN CELL VOLUME 97.7 fl (80-96); MEAN PLT VOLUME 7.6 fl (7.5-11.1); MONO % 2.6 % (3.8-10.2); NEUT % 88.7 % (42.8-82.8); PLATELET COUNT 278 10^3/uL (134-434); RBC 3.63 M/mm3 (4.00-5.60); RDW 13.8 % (11.9-15.9); WHITE BLOOD COUNT 12.6 K/mm3 (4.0-10.0)
[2023-04-05] MEDS: DAPTOMYCIN 700 MG in SODIUM CHLORIDE 50 ML IVPB SCH (10:27)
[2023-04-05 10:57] LABS: ERYTHROCYTE SEDIMENTATION RATE 96 mm/hr (0-20)
[2023-04-05 11:13] LABS: POTASSIUM 3.8 mmol/L (3.5-5.1)
[2023-04-05 11:26] LABS: INR 2.93 (0.83-1.09); PROTHROMBIN TIME (PATIENT) 33.6 SEC (9.7-13.0)
[2023-04-05 11:29] LABS: ACTIVATED PTT 41.5 SECONDS (25.2-36.5)
[2023-04-05 11:40] LABS: BLOOD UREA NITROGEN 10.8 mg/dL (7-18); CALCIUM 7.9 mg/dL (8.5-10.1)
[2023-04-05 11:43] LABS: CREATININE 0.8 mg/dL (0.55-1.3)
[2023-04-05] MEDS: INSULIN SLIDING SCALE (NOVOLOG) 1 VIAL SQ SCH (17:25)
[2023-04-05] MEDS ORDERED: WARFARIN NA 10 MG TABLET PO ONE (18:00)
[2023-04-05] MEDS: PRAMIPEXOLE DIHYDROCHLORIDE 1 MG TABLET PO SCH (21:26)
[2023-04-05] MEDS: PHENobarbital 30 MG TABLET PO SCH (21:26)
[2023-04-06] MEDS: INSULIN SLIDING SCALE (NOVOLOG) 1 VIAL SQ SCH ×3 (07:48→17:57)
[2023-04-06] MEDS: carBAMazepine 200 MG TABLET PO SCH ×3 (08:41→17:58)
[2023-04-06 09:52] LABS: BASO % 0.3 % (0-2.0); HEMATOCRIT 36.7 % (35.4-49); LYMPH % 14.9 % (8-40); MCH 32.2 pg (25.7-33.7); MCHC 32.7 g/dl (32.0-35.9); MEAN CELL VOLUME 98.6 fl (80-96); MEAN PLT VOLUME 7.5 fl (7.5-11.1); NEUT % 75.8 % (42.8-82.8); PLATELET COUNT 316 10^3/uL (134-434); RBC 3.72 M/mm3 (4.00-5.60); RDW 13.7 % (11.9-15.9); WHITE BLOOD COUNT 11.6 K/mm3 (4.0-10.0)
[2023-04-06] MEDS: ASCORBIC ACID 500 MG TABLET (FP) PO SCH ×2 (10:08→22:59)
[2023-04-06] MEDS: TOPIRAMATE 25 MG TABLET PO SCH (10:08)
[2023-04-06] MEDS: CLOPIDOGREL BISULFATE 75 MG TABLET (FP) PO SCH (10:08)
[2023-04-06] MEDS: PANTOPRAZOLE 40 MG TABLET PO SCH (10:08)
[2023-04-06] MEDS: SPIRONOLACTONE 25 MG TABLET PO SCH (10:08)
[2023-04-06] MEDS: ZINC SULFATE 220 MG CAPSULE (FP) PO SCH (10:08)
[2023-04-06] MEDS: POTASSIUM CHLORIDE TABS 20 MEQ TABLET.ER (FP) PO SCH (10:08)
[2023-04-06] MEDS: CYANOCOBALAMIN 1,000 MCG TABLET (FP) PO SCH (10:08)
[2023-04-06] MEDS: FUROSEMIDE 40 MG/4 ML INJECTABLE VIAL IVPUSH SCH (10:09)
[2023-04-06] MEDS: methylPREDNISolone NA SUCC 40 MG/1 ML VIAL IVPB SCH (10:11)
[2023-04-06] MEDS: CHOLECALCIFEROL (VIT D3) 5000 UNITS (125 MCG) CAP PO SCH (10:12)
[2023-04-06] MEDS: VITAMIN A 10,000 UNITS (3000 MCG) CAPSULE PO SCH (10:12)
[2023-04-06] MEDS: DIGOXIN 0.25 MG TABLET PO SCH (10:12)
[2023-04-06 10:13] LABS: CALCIUM 8.5 mg/dL (8.5-10.1)
[2023-04-06 10:14] LABS: BLOOD UREA NITROGEN 16.5 mg/dL (7-18)
[2023-04-06 10:17] LABS: CREATININE 0.9 mg/dL (0.55-1.3)
[2023-04-06 10:45] LABS: ERYTHROCYTE SEDIMENTATION RATE 111 mm/hr (0-20)
[2023-04-06] MEDS: DAPTOMYCIN 700 MG in SODIUM CHLORIDE 50 ML IVPB SCH (11:35)
[2023-04-06 11:56] LABS: INR 2.75 (0.83-1.09); PROTHROMBIN TIME (PATIENT) 31.6 SEC (9.7-13.0)
[2023-04-06] MEDS: WARFARIN NA 5 MG TABLET PO SCH (17:59)
[2023-04-06] MEDS: ACETAMINOPHEN 325 MG TABLET (FP) PO PRN (22:47)
[2023-04-06] MEDS: PRAMIPEXOLE DIHYDROCHLORIDE 1 MG TABLET PO SCH (22:58)
[2023-04-06] MEDS: PHENobarbital 30 MG TABLET PO SCH (22:58)
[2023-04-07] MEDS: methylPREDNISolone NA SUCC 40 MG/1 ML VIAL IVPB SCH ×4 (00:50→22:41)
[2023-04-07] MEDS: INSULIN SLIDING SCALE (NOVOLOG) 1 VIAL SQ SCH ×3 (06:49→17:30)
[2023-04-07] MEDS: carBAMazepine 200 MG TABLET PO SCH ×3 (07:45→17:33)
[2023-04-07] MEDS: FUROSEMIDE 40 MG/4 ML INJECTABLE VIAL IVPUSH SCH ×3 (08:15→17:32)
[2023-04-07] MEDS: CLOPIDOGREL BISULFATE 75 MG TABLET (FP) PO SCH (10:24)
[2023-04-07] MEDS: ASCORBIC ACID 500 MG TABLET (FP) PO SCH ×2 (10:24→22:35)
[2023-04-07] MEDS: PANTOPRAZOLE 40 MG TABLET PO SCH (10:24)
[2023-04-07] MEDS: ZINC SULFATE 220 MG CAPSULE (FP) PO SCH (10:24)
[2023-04-07] MEDS: CYANOCOBALAMIN 1,000 MCG TABLET (FP) PO SCH (10:24)
[2023-04-07] MEDS: DAPTOMYCIN 700 MG in SODIUM CHLORIDE 50 ML IVPB SCH (10:25)
[2023-04-07] MEDS: VITAMIN A 10,000 UNITS (3000 MCG) CAPSULE PO SCH (10:25)
[2023-04-07] MEDS: POTASSIUM CHLORIDE TABS 20 MEQ TABLET.ER (FP) PO SCH ×2 (10:25→12:03)
[2023-04-07] MEDS: TOPIRAMATE 25 MG TABLET PO SCH (10:29)
[2023-04-07] MEDS: SPIRONOLACTONE 25 MG TABLET PO SCH (10:29)
[2023-04-07] MEDS: CHOLECALCIFEROL (VIT D3) 5000 UNITS (125 MCG) CAP PO SCH (10:35)
[2023-04-07] MEDS: DIGOXIN 0.25 MG TABLET PO SCH (10:38)
[2023-04-07 11:06] LABS: BASO % 0.2 % (0-2.0); EOS % 0.7 % (0-4.5); HEMATOCRIT 34.9 % (35.4-49); HEMOGLOBIN 11.5 GM/dL (11.7-16.9); LYMPH % 12.1 % (8-40); MCH 32.5 pg (25.7-33.7); MEAN CELL VOLUME 98.7 fl (80-96); MEAN PLT VOLUME 7.4 fl (7.5-11.1); MONO % 4.2 % (3.8-10.2); NEUT % 82.8 % (42.8-82.8); PLATELET COUNT 276 10^3/uL (134-434); RBC 3.54 M/mm3 (4.00-5.60); RDW 13.8 % (11.9-15.9); WHITE BLOOD COUNT 9.2 K/mm3 (4.0-10.0)
[2023-04-07 11:13] LABS: INR 3.16 (0.83-1.09); PROTHROMBIN TIME (PATIENT) 36.2 SEC (9.7-13.0)
[2023-04-07 11:27] LABS: POTASSIUM 4.6 mmol/L (3.5-5.1)
[2023-04-07 12:12] LABS: ERYTHROCYTE SEDIMENTATION RATE 90 mm/hr (0-20)
[2023-04-07 12:19] LABS: CALCIUM 8.2 mg/dL (8.5-10.1)
[2023-04-07 12:23] LABS: BLOOD UREA NITROGEN 17.7 mg/dL (7-18); CREATININE 0.9 mg/dL (0.55-1.3)
[2023-04-07] MEDS: WARFARIN NA 5 MG TABLET PO SCH (17:32)
[2023-04-07] MEDS: PRAMIPEXOLE DIHYDROCHLORIDE 1 MG TABLET PO SCH (22:35)
[2023-04-07] MEDS: PHENobarbital 30 MG TABLET PO SCH (22:35)
[2023-04-07] MEDS: SILVER SULFADIAZINE 1% TOP CREAM 50 GM JAR TP SCH (22:36)
[2023-04-08] MEDS: INSULIN SLIDING SCALE (NOVOLOG) 1 VIAL SQ SCH ×3 (08:02→16:17)
[2023-04-08] MEDS: carBAMazepine 200 MG TABLET PO SCH ×3 (08:26→17:46)
[2023-04-08] MEDS: SPIRONOLACTONE 25 MG TABLET PO SCH (09:17)
[2023-04-08] MEDS: CLOPIDOGREL BISULFATE 75 MG TABLET (FP) PO SCH (09:17)
[2023-04-08] MEDS: CYANOCOBALAMIN 1,000 MCG TABLET (FP) PO SCH (09:17)
[2023-04-08] MEDS: ZINC SULFATE 220 MG CAPSULE (FP) PO SCH (09:17)
[2023-04-08] MEDS: PANTOPRAZOLE 40 MG TABLET PO SCH (09:18)
[2023-04-08] MEDS: TOPIRAMATE 25 MG TABLET PO SCH (09:18)
[2023-04-08] MEDS: ASCORBIC ACID 500 MG TABLET (FP) PO SCH ×2 (09:18→21:38)
[2023-04-08] MEDS: VITAMIN A 10,000 UNITS (3000 MCG) CAPSULE PO SCH (09:19)
[2023-04-08] MEDS: DIGOXIN 0.25 MG TABLET PO SCH (09:20)
[2023-04-08] MEDS: CHOLECALCIFEROL (VIT D3) 5000 UNITS (125 MCG) CAP PO SCH (09:21)
[2023-04-08] MEDS ORDERED: VITAMIN A 10,000 UNITS (3000 MCG) CAPSULE PO SCH (10:00)
[2023-04-08] MEDS ORDERED: FUROSEMIDE 40 MG/4 ML INJECTABLE VIAL IVPUSH SCH (10:00)
[2023-04-08 10:21] LABS: BASO % 0.6 % (0-2.0); EOS % 3.7 % (0-4.5); HEMATOCRIT 37.1 % (35.4-49); HEMOGLOBIN 12.6 GM/dL (11.7-16.9); LYMPH % 25.5 % (8-40); MCH 33.1 pg (25.7-33.7); MEAN CELL VOLUME 97.4 fl (80-96); NEUT % 63.2 % (42.8-82.8); PLATELET COUNT 287 10^3/uL (134-434); RBC 3.81 M/mm3 (4.00-5.60); RDW 13.8 % (11.9-15.9); WHITE BLOOD COUNT 9.2 K/mm3 (4.0-10.0)
[2023-04-08 10:26] LABS: INR 3.5 (0.83-1.09); PROTHROMBIN TIME (PATIENT) 40.1 SEC (9.7-13.0)
[2023-04-08 10:37] LABS: POTASSIUM 3.7 mmol/L (3.5-5.1)
[2023-04-08 10:39] LABS: BLOOD UREA NITROGEN 22.6 mg/dL (7-18); CALCIUM 8.3 mg/dL (8.5-10.1)
[2023-04-08] MEDS: DAPTOMYCIN 700 MG in SODIUM CHLORIDE 50 ML IVPB SCH (12:03)
[2023-04-08] MEDS: SILVER SULFADIAZINE 1% TOP CREAM 50 GM JAR TP SCH (12:04)
[2023-04-08] MEDS ORDERED: INSULIN SLIDING SCALE (NOVOLOG) 1 VIAL SQ ONE (12:31)
[2023-04-08] MEDS: ACETAMINOPHEN 325 MG TABLET (FP) PO PRN (12:38)
[2023-04-08 15:58] LABS: INR 3.52 (0.83-1.09); PROTHROMBIN TIME (PATIENT) 40.3 SEC (9.7-13.0)
[2023-04-08] MEDS: WARFARIN NA 5 MG TABLET PO SCH (17:45)
[2023-04-08] MEDS: methylPREDNISolone NA SUCC 40 MG/1 ML VIAL IVPB SCH (20:13)
[2023-04-08] MEDS: PHENobarbital 30 MG TABLET PO SCH (21:38)
[2023-04-08] MEDS: PRAMIPEXOLE DIHYDROCHLORIDE 1 MG TABLET PO SCH (21:38)
[2023-04-09] MEDS: INSULIN SLIDING SCALE (NOVOLOG) 1 VIAL SQ SCH (06:32)
[2023-04-09] MEDS ORDERED: INSULIN SLIDING SCALE (NOVOLOG) 1 VIAL SQ PRN (07:20)
[2023-04-09] MEDS: CYANOCOBALAMIN 1,000 MCG TABLET (FP) PO SCH (09:02)
[2023-04-09] MEDS: SPIRONOLACTONE 25 MG TABLET PO SCH (09:02)
[2023-04-09] MEDS: ZINC SULFATE 220 MG CAPSULE (FP) PO SCH (09:02)
[2023-04-09] MEDS: CHOLECALCIFEROL (VIT D3) 5000 UNITS (125 MCG) CAP PO SCH (09:02)
[2023-04-09] MEDS: TOPIRAMATE 25 MG TABLET PO SCH (09:02)
[2023-04-09] MEDS: DIGOXIN 0.25 MG TABLET PO SCH (09:02)
[2023-04-09] MEDS: PANTOPRAZOLE 40 MG TABLET PO SCH (09:02)
[2023-04-09] MEDS: FUROSEMIDE 40 MG TABLET (FP) PO SCH ×2 (09:02→18:14)
[2023-04-09] MEDS: CLOPIDOGREL BISULFATE 75 MG TABLET (FP) PO SCH (09:03)
[2023-04-09] MEDS: POTASSIUM CHLORIDE TABS 20 MEQ TABLET.ER (FP) PO SCH (09:03)
[2023-04-09] MEDS: VITAMIN A 10,000 UNITS (3000 MCG) CAPSULE PO SCH (09:03)
[2023-04-09] MEDS: ASCORBIC ACID 500 MG TABLET (FP) PO SCH ×2 (09:03→21:03)
[2023-04-09] MEDS: carBAMazepine 200 MG TABLET PO SCH ×3 (09:03→18:14)
[2023-04-09] MEDS: DAPTOMYCIN 700 MG in SODIUM CHLORIDE 50 ML IVPB SCH (10:14)
[2023-04-09] MEDS: SILVER SULFADIAZINE 1% TOP CREAM 50 GM JAR TP SCH (10:14)
[2023-04-09 10:37] LABS: BASO % 0.5 % (0-2.0); EOS % 4.6 % (0-4.5); HEMATOCRIT 38.3 % (35.4-49); HEMOGLOBIN 13.1 GM/dL (11.7-16.9); MCH 33.2 pg (25.7-33.7); MCHC 34.2 g/dl (32.0-35.9); MEAN PLT VOLUME 6.9 fl (7.5-11.1); MONO % 5.2 % (3.8-10.2); NEUT % 72.7 % (42.8-82.8); PLATELET COUNT 312 10^3/uL (134-434); RBC 3.95 M/mm3 (4.00-5.60); RDW 13.8 % (11.9-15.9); WHITE BLOOD COUNT 8.4 K/mm3 (4.0-10.0)
[2023-04-09 10:41] LABS: INR 3.63 (0.83-1.09); PROTHROMBIN TIME (PATIENT) 41.6 SEC (9.7-13.0)
[2023-04-09 10:54] LABS: POTASSIUM 3.9 mmol/L (3.5-5.1)
[2023-04-09 10:55] LABS: CALCIUM 8.4 mg/dL (8.5-10.1)
[2023-04-09 10:56] LABS: BLOOD UREA NITROGEN 21.8 mg/dL (7-18)
[2023-04-09] MEDS: WARFARIN NA 5 MG TABLET PO SCH (18:14)
[2023-04-09] MEDS: PHENobarbital 30 MG TABLET PO SCH (21:03)
[2023-04-09] MEDS: PRAMIPEXOLE DIHYDROCHLORIDE 1 MG TABLET PO SCH (21:03)
[2023-04-10] MEDS: carBAMazepine 200 MG TABLET PO SCH ×3 (08:42→17:38)
[2023-04-10 10:03] LABS: BASO % 0.8 % (0-2.0); EOS % 4.6 % (0-4.5); HEMATOCRIT 40.2 % (35.4-49); HEMOGLOBIN 13.5 GM/dL (11.7-16.9); LYMPH % 20.6 % (8-40); MCH 32.5 pg (25.7-33.7); MCHC 33.6 g/dl (32.0-35.9); MEAN CELL VOLUME 96.7 fl (80-96); MEAN PLT VOLUME 6.9 fl (7.5-11.1); MONO % 5.4 % (3.8-10.2); NEUT % 68.6 % (42.8-82.8); PLATELET COUNT 318 10^3/uL (134-434); RBC 4.15 M/mm3 (4.00-5.60); RDW 13.7 % (11.9-15.9); WHITE BLOOD COUNT 8.6 K/mm3 (4.0-10.0)
[2023-04-10 10:07] LABS: INR 3.02 (0.83-1.09); PROTHROMBIN TIME (PATIENT) 34.6 SEC (9.7-13.0)
[2023-04-10 10:18] LABS: POTASSIUM 4.2 mmol/L (3.5-5.1)
[2023-04-10 10:19] LABS: CALCIUM 8.1 mg/dL (8.5-10.1)
[2023-04-10 10:20] LABS: BLOOD UREA NITROGEN 17.6 mg/dL (7-18)
[2023-04-10] MEDS: DAPTOMYCIN 700 MG in SODIUM CHLORIDE 50 ML IVPB SCH (10:52)
[2023-04-10] MEDS: TOPIRAMATE 25 MG TABLET PO SCH (10:54)
[2023-04-10] MEDS: CYANOCOBALAMIN 1,000 MCG TABLET (FP) PO SCH (10:54)
[2023-04-10] MEDS: CLOPIDOGREL BISULFATE 75 MG TABLET (FP) PO SCH (10:54)
[2023-04-10] MEDS: ZINC SULFATE 220 MG CAPSULE (FP) PO SCH (10:54)
[2023-04-10] MEDS: PANTOPRAZOLE 40 MG TABLET PO SCH (10:55)
[2023-04-10] MEDS: FUROSEMIDE 40 MG TABLET (FP) PO SCH ×2 (10:55→17:39)
[2023-04-10] MEDS: VITAMIN A 10,000 UNITS (3000 MCG) CAPSULE PO SCH (10:55)
[2023-04-10] MEDS: ASCORBIC ACID 500 MG TABLET (FP) PO SCH ×2 (10:55→22:43)
[2023-04-10] MEDS: SILVER SULFADIAZINE 1% TOP CREAM 50 GM JAR TP SCH (10:59)
[2023-04-10] MEDS: CHOLECALCIFEROL (VIT D3) 5000 UNITS (125 MCG) CAP PO SCH (11:00)
[2023-04-10] MEDS: DIGOXIN 0.25 MG TABLET PO SCH (11:00)
[2023-04-10] MEDS: SPIRONOLACTONE 25 MG TABLET PO SCH (11:00)
[2023-04-10 14:24] VITALS: BMI 56.0
[2023-04-10] MEDS: WARFARIN NA 5 MG TABLET PO SCH (17:39)
[2023-04-10] MEDS: ACETAMINOPHEN 325 MG TABLET (FP) PO PRN (22:41)
[2023-04-10] MEDS: PRAMIPEXOLE DIHYDROCHLORIDE 1 MG TABLET PO SCH (22:43)
[2023-04-10] MEDS: PHENobarbital 30 MG TABLET PO SCH (22:43)
[2023-04-11] MEDS: DAPTOMYCIN 700 MG in SODIUM CHLORIDE 50 ML IVPB SCH (09:30)
[2023-04-11] MEDS: VITAMIN A 10,000 UNITS (3000 MCG) CAPSULE PO SCH (10:05)
[2023-04-11] MEDS: POTASSIUM CHLORIDE TABS 20 MEQ TABLET.ER (FP) PO SCH (10:06)
[2023-04-11] MEDS: PANTOPRAZOLE 40 MG TABLET PO SCH (10:06)
[2023-04-11] MEDS: FUROSEMIDE 40 MG TABLET (FP) PO SCH ×2 (10:06→17:44)
[2023-04-11] MEDS: SPIRONOLACTONE 25 MG TABLET PO SCH (10:06)
[2023-04-11] MEDS: CLOPIDOGREL BISULFATE 75 MG TABLET (FP) PO SCH (10:07)
[2023-04-11] MEDS: ASCORBIC ACID 500 MG TABLET (FP) PO SCH ×2 (10:07→22:39)
[2023-04-11] MEDS: DIGOXIN 0.25 MG TABLET PO SCH (10:07)
[2023-04-11] MEDS: TOPIRAMATE 25 MG TABLET PO SCH (10:07)
[2023-04-11] MEDS: ZINC SULFATE 220 MG CAPSULE (FP) PO SCH (10:07)
[2023-04-11] MEDS: CYANOCOBALAMIN 1,000 MCG TABLET (FP) PO SCH (10:08)
[2023-04-11] MEDS: CHOLECALCIFEROL (VIT D3) 5000 UNITS (125 MCG) CAP PO SCH (10:08)
[2023-04-11] MEDS: carBAMazepine 200 MG TABLET PO SCH ×3 (10:08→17:44)
[2023-04-11 11:24] LABS: BASO % 0.4 % (0-2.0); EOS % 3.7 % (0-4.5); HEMATOCRIT 39.7 % (35.4-49); HEMOGLOBIN 13.5 GM/dL (11.7-16.9); LYMPH % 15.9 % (8-40); MCHC 33.9 g/dl (32.0-35.9); MEAN CELL VOLUME 97.3 fl (80-96); MONO % 4.7 % (3.8-10.2); NEUT % 75.3 % (42.8-82.8); PLATELET COUNT 322 10^3/uL (134-434); RBC 4.08 M/mm3 (4.00-5.60); RDW 13.9 % (11.9-15.9); WHITE BLOOD COUNT 9.2 K/mm3 (4.0-10.0)
[2023-04-11 11:41] LABS: INR 3.24 (0.83-1.09); PROTHROMBIN TIME (PATIENT) 37.2 SEC (9.7-13.0)
[2023-04-11 11:43] LABS: POTASSIUM 4.2 mmol/L (3.5-5.1)
[2023-04-11 12:04] LABS: CALCIUM 8.4 mg/dL (8.5-10.1)
[2023-04-11 12:05] LABS: BLOOD UREA NITROGEN 17.3 mg/dL (7-18)
[2023-04-11 12:08] LABS: CREATININE 0.9 mg/dL (0.55-1.3)
[2023-04-11] MEDS: SILVER SULFADIAZINE 1% TOP CREAM 50 GM JAR TP SCH (12:23)
[2023-04-11] MEDS: ACETAMINOPHEN 325 MG TABLET (FP) PO PRN ×2 (16:03→22:39)
[2023-04-11] MEDS: WARFARIN NA 5 MG TABLET PO SCH (18:08)
[2023-04-11] MEDS: PRAMIPEXOLE DIHYDROCHLORIDE 1 MG TABLET PO SCH (22:39)
[2023-04-11] MEDS: PHENobarbital 30 MG TABLET PO SCH (22:39)
[2023-04-12] MEDS: ASCORBIC ACID 500 MG TABLET (FP) PO SCH ×2 (09:42→22:04)
[2023-04-12] MEDS: TOPIRAMATE 25 MG TABLET PO SCH (09:42)
[2023-04-12] MEDS: carBAMazepine 200 MG TABLET PO SCH ×3 (09:42→17:30)
[2023-04-12] MEDS: VITAMIN A 10,000 UNITS (3000 MCG) CAPSULE PO SCH (09:42)
[2023-04-12] MEDS: CLOPIDOGREL BISULFATE 75 MG TABLET (FP) PO SCH (09:42)
[2023-04-12] MEDS: CHOLECALCIFEROL (VIT D3) 5000 UNITS (125 MCG) CAP PO SCH (09:42)
[2023-04-12] MEDS: CYANOCOBALAMIN 1,000 MCG TABLET (FP) PO SCH (09:42)
[2023-04-12] MEDS: SPIRONOLACTONE 25 MG TABLET PO SCH (09:42)
[2023-04-12] MEDS: DIGOXIN 0.25 MG TABLET PO SCH (09:43)
[2023-04-12] MEDS: FUROSEMIDE 40 MG TABLET (FP) PO SCH ×2 (09:43→17:30)
[2023-04-12] MEDS: PANTOPRAZOLE 40 MG TABLET PO SCH (09:43)
[2023-04-12] MEDS: ZINC SULFATE 220 MG CAPSULE (FP) PO SCH (09:43)
[2023-04-12] MEDS: ACETAMINOPHEN 325 MG TABLET (FP) PO PRN ×3 (09:43→22:08)
[2023-04-12 11:24] LABS: INR 3.24 (0.83-1.09); PROTHROMBIN TIME (PATIENT) 37.1 SEC (9.7-13.0)
[2023-04-12 12:11] LABS: POTASSIUM 4.1 mmol/L (3.5-5.1)
[2023-04-12 12:21] LABS: CALCIUM 8.4 mg/dL (8.5-10.1)
[2023-04-12 12:22] LABS: CREATININE 0.9 mg/dL (0.55-1.3)
[2023-04-12] MEDS: SILVER SULFADIAZINE 1% TOP CREAM 50 GM JAR TP SCH (14:00)
[2023-04-12] MEDS: DAPTOMYCIN 700 MG in SODIUM CHLORIDE 50 ML IVPB SCH (14:12)
[2023-04-12] MEDS: WARFARIN NA 5 MG TABLET PO SCH (17:30)
[2023-04-12] MEDS: PRAMIPEXOLE DIHYDROCHLORIDE 1 MG TABLET PO SCH (22:03)
[2023-04-12] MEDS: PHENobarbital 30 MG TABLET PO SCH (22:03)
[2023-04-13] MEDS: carBAMazepine 200 MG TABLET PO SCH ×2 (08:21→12:22)
[2023-04-13] MEDS: POTASSIUM CHLORIDE TABS 20 MEQ TABLET.ER (FP) PO SCH (10:13)
[2023-04-13] MEDS: TOPIRAMATE 25 MG TABLET PO SCH (10:14)
[2023-04-13] MEDS: CYANOCOBALAMIN 1,000 MCG TABLET (FP) PO SCH (10:14)
[2023-04-13] MEDS: ZINC SULFATE 220 MG CAPSULE (FP) PO SCH (10:14)
[2023-04-13] MEDS: FUROSEMIDE 40 MG TABLET (FP) PO SCH (10:14)
[2023-04-13] MEDS: CLOPIDOGREL BISULFATE 75 MG TABLET (FP) PO SCH (10:14)
[2023-04-13] MEDS: SPIRONOLACTONE 25 MG TABLET PO SCH (10:14)
[2023-04-13] MEDS: ASCORBIC ACID 500 MG TABLET (FP) PO SCH (10:14)
[2023-04-13] MEDS: PANTOPRAZOLE 40 MG TABLET PO SCH (10:14)
[2023-04-13] MEDS: DIGOXIN 0.25 MG TABLET PO SCH (10:15)
[2023-04-13] MEDS: CHOLECALCIFEROL (VIT D3) 5000 UNITS (125 MCG) CAP PO SCH (10:15)
[2023-04-13] MEDS: VITAMIN A 10,000 UNITS (3000 MCG) CAPSULE PO SCH (10:15)
[2023-04-13] MEDS: SILVER SULFADIAZINE 1% TOP CREAM 50 GM JAR TP SCH (10:18)
[2023-04-13] MEDS: DAPTOMYCIN 700 MG in SODIUM CHLORIDE 50 ML IVPB SCH (10:29)
[2023-04-13 12:03] LABS: INR 3.39 (0.83-1.09); PROTHROMBIN TIME (PATIENT) 38.8 SEC (9.7-13.0)
[2023-04-13] MEDS: ACETAMINOPHEN 325 MG TABLET (FP) PO PRN (13:33)
[2023-04-13 19:07] VITALS: BP 138/73; PULSE 84; RESP 18; TEMP 98.8
== END 2023-04-13 16:40 | disposition home or self-care (01) | DRG 603 ==
LOC: JER 22:10 → JERBED 04-02 05:01 → J5S 04-03 21:33
PROVIDERS: ADMIT Internal Medicine; ATTEND Internal Medicine
DX: L03.115 Cellulitis of right lower limb (principal); I48.20 Chronic atrial fibrillation, unspecified; Z68.43 Body mass index [BMI] 50.0-59.9, adult; E87.20 Acidosis, unspecified; L97.518 Non-pressure chronic ulcer of other part of right foot with other specified severity; L97.528 Non-pressure chronic ulcer of other part of left foot with other specified severity; I50.32 Chronic diastolic (congestive) heart failure; I11.0 Hypertensive heart disease with heart failure; L03.116 Cellulitis of left lower limb; J44.9 Chronic obstructive pulmonary disease, unspecified; I25.10 Atherosclerotic heart disease of native coronary artery without angina pectoris; E78.5 Hyperlipidemia, unspecified; M62.81 Muscle weakness (generalized); G40.909 Epilepsy, unspecified, not intractable, without status epilepticus; E88.09 Other disorders of plasma-protein metabolism, not elsewhere classified; E66.01 Morbid (severe) obesity due to excess calories; G47.33 Obstructive sleep apnea (adult) (pediatric); E87.6 Hypokalemia; D72.829 Elevated white blood cell count, unspecified; Z95.5 Presence of coronary angioplasty implant and graft
CPT/HCPCS: 36415; 73700-TC-RT; 80048; 80053; 80162; 82550; 82553; 82962; 83036; 83605; 83735; 85025; 85610; 85651; 85730; 86140; 86850; 86900; 86901; 87040; 87635; 93005; 93010; 97116-GP; 97162-GP; 99285-25; J0878

== ENCOUNTER 2023-07-05 17:48 | Inpatient (IN) | payer OTHER ==
[2023-07-05 18:54] LABS: BASO % 0.9 % (0-2.0); EOS % 0.8 % (0-4.5); HEMOGLOBIN 11.7 GM/dL (11.7-16.9); LYMPH % 13.7 % (8-40); MCH 31.9 pg (25.7-33.7); MCHC 33.3 g/dl (32.0-35.9); MEAN CELL VOLUME 95.7 fl (80-96); MEAN PLT VOLUME 7.9 fl (7.5-11.1); MONO % 6.4 % (3.8-10.2); NEUT % 78.2 % (42.8-82.8); PLATELET COUNT 241 10^3/uL (134-434); RBC 3.66 M/mm3 (4.00-5.60); RDW 14.5 % (11.9-15.9); WHITE BLOOD COUNT 9.3 K/mm3 (4.0-10.0)
[2023-07-05 19:01] LABS: INR 1.89 (0.83-1.09); PROTHROMBIN TIME (PATIENT) 21.8 SEC (9.7-13.0)
[2023-07-05 19:04] LABS: ACTIVATED PTT 31.2 SECONDS (25.2-36.5)
[2023-07-05] MEDS ORDERED: FUROSEMIDE 40 MG/4 ML INJECTABLE VIAL IVPUSH ONE (19:24)
[2023-07-05] MEDS ORDERED: FUROSEMIDE 40 MG/4 ML INJECTABLE VIAL ONE (19:44)
[2023-07-05 20:01] LABS: POTASSIUM 5.2 mmol/L (3.5-5.1)
[2023-07-05 20:08] LABS: ALBUMIN 2.8 g/dl (3.4-5.0); CALCIUM 8.2 mg/dL (8.5-10.1)
[2023-07-05 20:09] LABS: BLOOD UREA NITROGEN 14.7 mg/dL (7-18); MAGNESIUM 1.8 mg/dL (1.8-2.4)
[2023-07-05 20:13] LABS: BILIRUBIN,TOTAL 0.4 mg/dL (0.2-1)
[2023-07-05 20:17] LABS: N-TERMINAL BNP 1365.8 pg/ml (5-125)
[2023-07-05] MEDS ORDERED: WARFARIN NA 10 MG TABLET PO ONE (20:34)
[2023-07-05 20:51] LABS: EPI CELLS 2 /uL (0-25.1); HYALINE CASTS 0 /uL (0-3.1); URINE APPEARANCE CLEAR; URINE BACTERIA 2 /uL (0-1359); URINE BILIRUBIN NEGATIVE (NEGATIVE); URINE COLOR YELLOW; URINE GLUCOSE (UA) NEGATIVE (NEGATIVE); URINE KETONE NEGATIVE (NEGATIVE); URINE LEUK ESTERASE NEGATIVE (NEGATIVE); URINE NITRITE NEGATIVE (NEGATIVE); URINE PROTEIN NEGATIVE (NEGATIVE); URINE RBC 6 /uL (0-23.9); URINE UROBILINOGEN 0.2 mg/dL (0.2-1.0); URINE WBC 1 /uL (0-25.8)
[2023-07-05] MEDS ORDERED: MAGNESIUM SULF 50% (8.12 MEQ/2 ML-1 GM VIAL) IVPB ONE (20:52)
[2023-07-05] MEDS ORDERED: ATORVASTATIN CA 20 MG TABLET (FP) ONE (21:04)
[2023-07-05] MEDS ORDERED: WARFARIN NA 5 MG TABLET ONE (21:05)
[2023-07-05] MEDS ORDERED: PANTOPRAZOLE 40 MG TABLET PO ONE (21:05)
[2023-07-05] MEDS ORDERED: PHENobarbital 30 MG TABLET ONE (21:05)
[2023-07-05] MEDS ORDERED: carBAMazepine 200 MG TABLET ONE (21:05)
[2023-07-05] MEDS ORDERED: MAGNESIUM SULF 50% (8.12 MEQ/2 ML-1 GM VIAL) ONE (21:05)
[2023-07-05] MEDS ORDERED: MAGNESIUM 1GM/D5W - 2 GM/200 ML IVPB IVPB ONE (21:06)
[2023-07-05] MEDS: PHENobarbital 30 MG TABLET PO SCH (21:23)
[2023-07-05] MEDS: carBAMazepine 200 MG TABLET PO SCH (21:23)
[2023-07-05] MEDS: PANTOPRAZOLE 40 MG TABLET PO SCH (21:23)
[2023-07-05] MEDS: ATORVASTATIN CA 20 MG TABLET (FP) PO SCH (21:24)
[2023-07-05] MEDS: AMMONIUM LACTATE 12% LOTION 225 GM BOTTLE TP SCH (22:05)
[2023-07-05] MEDS: PRAMIPEXOLE DIHYDROCHLORIDE 0.25 MG TABLET PO SCH (22:05)
[2023-07-05 22:18] LABS: POTASSIUM 3.7 mmol/L (3.5-5.1)
[2023-07-05 22:19] LABS: CALCIUM 8.3 mg/dL (8.5-10.1)
[2023-07-05 22:20] LABS: BLOOD UREA NITROGEN 13.7 mg/dL (7-18)
[2023-07-06 06:56] LABS: BASO % 0.3 % (0-2.0); EOS % 1.7 % (0-4.5); HEMATOCRIT 34.8 % (35.4-49); HEMOGLOBIN 11.3 GM/dL (11.7-16.9); LYMPH % 19.6 % (8-40); MCH 32.1 pg (25.7-33.7); MCHC 32.6 g/dl (32.0-35.9); MEAN CELL VOLUME 98.4 fl (80-96); MEAN PLT VOLUME 7.8 fl (7.5-11.1); MONO % 8.1 % (3.8-10.2); NEUT % 70.3 % (42.8-82.8); PLATELET COUNT 235 10^3/uL (134-434); RBC 3.53 M/mm3 (4.00-5.60); RDW 14.3 % (11.9-15.9)
[2023-07-06 07:02] LABS: POTASSIUM 4.3 mmol/L (3.5-5.1)
[2023-07-06 07:03] LABS: CALCIUM 8.2 mg/dL (8.5-10.1)
[2023-07-06 07:04] LABS: BLOOD UREA NITROGEN 13.8 mg/dL (7-18)
[2023-07-06] MEDS ORDERED: TOPIRAMATE 25 MG TABLET ONE (08:56)
[2023-07-06] MEDS ORDERED: PANTOPRAZOLE 40 MG TABLET PO ONE (09:06)
[2023-07-06] MEDS: PANTOPRAZOLE 40 MG TABLET PO SCH (09:30)
[2023-07-06] MEDS: carBAMazepine 200 MG TABLET PO SCH ×3 (09:30→17:23)
[2023-07-06] MEDS: DIGOXIN 0.25 MG TABLET PO SCH (09:30)
[2023-07-06] MEDS: CLOPIDOGREL BISULFATE 75 MG TABLET (FP) PO SCH (09:30)
[2023-07-06] MEDS: PRAMIPEXOLE DIHYDROCHLORIDE 0.25 MG TABLET PO SCH ×2 (09:30→21:08)
[2023-07-06] MEDS: CYANOCOBALAMIN 1,000 MCG TABLET (FP) PO SCH (09:31)
[2023-07-06] MEDS: AMMONIUM LACTATE 12% LOTION 225 GM BOTTLE TP SCH ×2 (09:31→21:10)
[2023-07-06] MEDS ORDERED: TOPIRAMATE 25 MG TABLET PO SCH (10:00)
[2023-07-06] MEDS ORDERED: FUROSEMIDE 40 MG/4 ML INJECTABLE VIAL IVPUSH SCH (10:00)
[2023-07-06] MEDS ORDERED: SPIRONOLACTONE 25 MG TABLET PO SCH (10:00)
[2023-07-06] MEDS ORDERED: carBAMazepine 200 MG TABLET ONE (11:16)
[2023-07-06] MEDS: FUROSEMIDE 40 MG/4 ML INJECTABLE VIAL IVPUSH SCH (14:01)
[2023-07-06 17:17] LABS: INR 2.15 (0.83-1.09); PROTHROMBIN TIME (PATIENT) 24.7 SEC (9.7-13.0)
[2023-07-06] MEDS: WARFARIN NA 10 MG TABLET PO SCH (17:24)
[2023-07-06] MEDS: PHENobarbital 30 MG TABLET PO SCH (21:08)
[2023-07-06] MEDS: ATORVASTATIN CA 20 MG TABLET (FP) PO SCH (21:08)
[2023-07-06] MEDS: ACETAMINOPHEN 325 MG TABLET (FP) PO PRN (22:14)
[2023-07-07] MEDS: FUROSEMIDE 40 MG/4 ML INJECTABLE VIAL IVPUSH SCH ×2 (06:24→15:21)
[2023-07-07 07:28] LABS: BASO % 0.4 % (0-2.0); EOS % 2.4 % (0-4.5); HEMATOCRIT 35.2 % (35.4-49); HEMOGLOBIN 12.1 GM/dL (11.7-16.9); LYMPH % 21.1 % (8-40); MCH 32.6 pg (25.7-33.7); MCHC 34.4 g/dl (32.0-35.9); MEAN PLT VOLUME 7.6 fl (7.5-11.1); MONO % 7.2 % (3.8-10.2); NEUT % 68.9 % (42.8-82.8); PLATELET COUNT 239 10^3/uL (134-434); RDW 14.9 % (11.9-15.9); WHITE BLOOD COUNT 7.6 K/mm3 (4.0-10.0)
[2023-07-07 09:04] LABS: POTASSIUM 3.6 mmol/L (3.5-5.1)
[2023-07-07 09:09] LABS: BLOOD UREA NITROGEN 13.9 mg/dL (7-18)
[2023-07-07 09:12] LABS: CREATININE 0.9 mg/dL (0.55-1.3)
[2023-07-07] MEDS: CLOPIDOGREL BISULFATE 75 MG TABLET (FP) PO SCH (09:49)
[2023-07-07] MEDS: CYANOCOBALAMIN 1,000 MCG TABLET (FP) PO SCH (09:49)
[2023-07-07] MEDS: PANTOPRAZOLE 40 MG TABLET PO SCH (09:50)
[2023-07-07] MEDS: PRAMIPEXOLE DIHYDROCHLORIDE 0.25 MG TABLET PO SCH ×2 (09:50→21:26)
[2023-07-07] MEDS: DIGOXIN 0.25 MG TABLET PO SCH (09:50)
[2023-07-07] MEDS: carBAMazepine 200 MG TABLET PO SCH ×4 (09:51→16:53)
[2023-07-07] MEDS: AMMONIUM LACTATE 12% LOTION 225 GM BOTTLE TP SCH ×2 (10:00→21:25)
[2023-07-07 15:45] LABS: INR 2.4 (0.83-1.09); PROTHROMBIN TIME (PATIENT) 27.6 SEC (9.7-13.0)
[2023-07-07] MEDS: WARFARIN NA 10 MG TABLET PO SCH (17:10)
[2023-07-07] MEDS ORDERED: POTASSIUM CHLORIDE TABS 10 MEQ TABLET.ER (FP) PO ONE (17:29)
[2023-07-07] MEDS: ACETAMINOPHEN 325 MG TABLET (FP) PO PRN (17:51)
[2023-07-07] MEDS: ATORVASTATIN CA 20 MG TABLET (FP) PO SCH ×2 (21:26→21:28)
[2023-07-07] MEDS: PHENobarbital 30 MG TABLET PO SCH (21:26)
[2023-07-08] MEDS: ACETAMINOPHEN 325 MG TABLET (FP) PO PRN (02:37)
[2023-07-08] MEDS: FUROSEMIDE 40 MG/4 ML INJECTABLE VIAL IVPUSH SCH ×2 (06:34→13:34)
[2023-07-08 07:44] LABS: BASO % 0.6 % (0-2.0); EOS % 2.4 % (0-4.5); HEMATOCRIT 35.8 % (35.4-49); HEMOGLOBIN 12.1 GM/dL (11.7-16.9); LYMPH % 23.9 % (8-40); MCH 32.9 pg (25.7-33.7); MCHC 33.8 g/dl (32.0-35.9); MEAN CELL VOLUME 97.6 fl (80-96); MEAN PLT VOLUME 7.7 fl (7.5-11.1); MONO % 6.9 % (3.8-10.2); NEUT % 66.2 % (42.8-82.8); PLATELET COUNT 262 10^3/uL (134-434); RBC 3.67 M/mm3 (4.00-5.60); RDW 14.5 % (11.9-15.9); WHITE BLOOD COUNT 8.1 K/mm3 (4.0-10.0)
[2023-07-08 07:54] LABS: POTASSIUM 4.3 mmol/L (3.5-5.1)
[2023-07-08 07:59] LABS: BLOOD UREA NITROGEN 17.1 mg/dL (7-18)
[2023-07-08 08:00] LABS: CALCIUM 8.6 mg/dL (8.5-10.1)
[2023-07-08 08:02] LABS: CREATININE 0.9 mg/dL (0.55-1.3)
[2023-07-08] MEDS: CYANOCOBALAMIN 1,000 MCG TABLET (FP) PO SCH (09:33)
[2023-07-08] MEDS: DIGOXIN 0.25 MG TABLET PO SCH (09:33)
[2023-07-08] MEDS: PANTOPRAZOLE 40 MG TABLET PO SCH (09:33)
[2023-07-08] MEDS: AMMONIUM LACTATE 12% LOTION 225 GM BOTTLE TP SCH ×2 (09:33→21:35)
[2023-07-08] MEDS: PRAMIPEXOLE DIHYDROCHLORIDE 0.25 MG TABLET PO SCH ×2 (09:34→17:50)
[2023-07-08] MEDS: carBAMazepine 200 MG TABLET PO SCH ×3 (09:34→17:50)
[2023-07-08] MEDS: CLOPIDOGREL BISULFATE 75 MG TABLET (FP) PO SCH (09:34)
[2023-07-08 17:42] LABS: INR 2.5 (0.83-1.09); PROTHROMBIN TIME (PATIENT) 28.7 SEC (9.7-13.0)
[2023-07-08] MEDS: WARFARIN NA 10 MG TABLET PO SCH (17:49)
[2023-07-08] MEDS: ATORVASTATIN CA 20 MG TABLET (FP) PO SCH (21:33)
[2023-07-08] MEDS: PHENobarbital 30 MG TABLET PO SCH (21:33)
[2023-07-08] MEDS: MULTIVITAMINS (DAILY MVI) TABLET (FP) PO SCH (21:34)
[2023-07-08] MEDS: PRAMIPEXOLE DIHYDROCHLORIDE 1 MG TABLET PO SCH (21:34)
[2023-07-08] MEDS: ZINC SULFATE 220 MG CAPSULE (FP) PO SCH (21:34)
[2023-07-08] MEDS: ASCORBIC ACID 250 MG TABLET (FP) PO SCH (21:34)
[2023-07-09] MEDS: FUROSEMIDE 40 MG/4 ML INJECTABLE VIAL IVPUSH SCH ×2 (05:34→13:35)
[2023-07-09 06:57] LABS: BASO % 0.6 % (0-2.0); EOS % 2.5 % (0-4.5); HEMATOCRIT 39.3 % (35.4-49); HEMOGLOBIN 12.9 GM/dL (11.7-16.9); LYMPH % 22.3 % (8-40); MCH 31.8 pg (25.7-33.7); MCHC 32.8 g/dl (32.0-35.9); MEAN CELL VOLUME 97.2 fl (80-96); MEAN PLT VOLUME 7.5 fl (7.5-11.1); MONO % 6.4 % (3.8-10.2); NEUT % 68.2 % (42.8-82.8); PLATELET COUNT 297 10^3/uL (134-434); RBC 4.04 M/mm3 (4.00-5.60); RDW 14.6 % (11.9-15.9); WHITE BLOOD COUNT 9.1 K/mm3 (4.0-10.0)
[2023-07-09 07:18] LABS: POTASSIUM 3.7 mmol/L (3.5-5.1)
[2023-07-09 07:20] LABS: CALCIUM 8.7 mg/dL (8.5-10.1)
[2023-07-09 07:21] LABS: BLOOD UREA NITROGEN 16.1 mg/dL (7-18)
[2023-07-09 07:25] LABS: CREATININE 1.1 mg/dL (0.55-1.3)
[2023-07-09 07:27] LABS: CHOLESTEROL 168 mg/dL (50-200)
[2023-07-09 07:28] LABS: LDL CHOLESTEROL (ONLY SJRH) 104 mg/dL (5-100)
[2023-07-09 07:31] LABS: HDL CHOLESTEROL 43 mg/dL (40-60)
[2023-07-09] MEDS: carBAMazepine 200 MG TABLET PO SCH ×3 (08:44→18:43)
[2023-07-09] MEDS: ASCORBIC ACID 250 MG TABLET (FP) PO SCH (10:18)
[2023-07-09] MEDS: CLOPIDOGREL BISULFATE 75 MG TABLET (FP) PO SCH (10:19)
[2023-07-09] MEDS: CYANOCOBALAMIN 1,000 MCG TABLET (FP) PO SCH (10:19)
[2023-07-09] MEDS: PRAMIPEXOLE DIHYDROCHLORIDE 0.25 MG TABLET PO SCH ×2 (10:20→18:43)
[2023-07-09] MEDS: MULTIVITAMINS (DAILY MVI) TABLET (FP) PO SCH (10:20)
[2023-07-09] MEDS: ZINC SULFATE 220 MG CAPSULE (FP) PO SCH (10:20)
[2023-07-09] MEDS: DIGOXIN 0.25 MG TABLET PO SCH (10:21)
[2023-07-09] MEDS: PANTOPRAZOLE 40 MG TABLET PO SCH (10:21)
[2023-07-09] MEDS: AMMONIUM LACTATE 12% LOTION 225 GM BOTTLE TP SCH ×2 (10:22→22:01)
[2023-07-09 15:33] LABS: INR 2.51 (0.83-1.09); PROTHROMBIN TIME (PATIENT) 28.8 SEC (9.7-13.0)
[2023-07-09] MEDS: WARFARIN NA 10 MG TABLET PO SCH (18:42)
[2023-07-09] MEDS: ATORVASTATIN CA 20 MG TABLET (FP) PO SCH (21:57)
[2023-07-09] MEDS: PRAMIPEXOLE DIHYDROCHLORIDE 1 MG TABLET PO SCH (21:58)
[2023-07-09] MEDS: PHENobarbital 30 MG TABLET PO SCH (21:58)
[2023-07-10] MEDS: FUROSEMIDE 40 MG/4 ML INJECTABLE VIAL IVPUSH SCH ×2 (07:01→16:01)
[2023-07-10 07:02] VITALS: RESP 20
[2023-07-10 07:47] LABS: BASO % 0.4 % (0-2.0); EOS % 2.6 % (0-4.5); HEMATOCRIT 34.9 % (35.4-49); HEMOGLOBIN 11.9 GM/dL (11.7-16.9); LYMPH % 22.2 % (8-40); MCH 32.3 pg (25.7-33.7); MEAN CELL VOLUME 95.1 fl (80-96); MEAN PLT VOLUME 7.7 fl (7.5-11.1); MONO % 8.5 % (3.8-10.2); NEUT % 66.3 % (42.8-82.8); PLATELET COUNT 249 10^3/uL (134-434); RBC 3.67 M/mm3 (4.00-5.60); RDW 14.3 % (11.9-15.9); WHITE BLOOD COUNT 8.1 K/mm3 (4.0-10.0)
[2023-07-10 07:57] LABS: POTASSIUM 3.9 mmol/L (3.5-5.1)
[2023-07-10 08:01] LABS: CALCIUM 8.2 mg/dL (8.5-10.1)
[2023-07-10] MEDS: DIGOXIN 0.25 MG TABLET PO SCH (09:52)
[2023-07-10] MEDS: ASCORBIC ACID 250 MG TABLET (FP) PO SCH (09:52)
[2023-07-10] MEDS: PANTOPRAZOLE 40 MG TABLET PO SCH (09:53)
[2023-07-10] MEDS: CYANOCOBALAMIN 1,000 MCG TABLET (FP) PO SCH (09:53)
[2023-07-10] MEDS: PRAMIPEXOLE DIHYDROCHLORIDE 0.25 MG TABLET PO SCH ×2 (09:53→19:17)
[2023-07-10] MEDS: CLOPIDOGREL BISULFATE 75 MG TABLET (FP) PO SCH (09:53)
[2023-07-10] MEDS: MULTIVITAMINS (DAILY MVI) TABLET (FP) PO SCH (09:53)
[2023-07-10] MEDS: ZINC SULFATE 220 MG CAPSULE (FP) PO SCH (09:53)
[2023-07-10] MEDS: carBAMazepine 200 MG TABLET PO SCH ×3 (10:00→18:56)
[2023-07-10] MEDS: AMMONIUM LACTATE 12% LOTION 225 GM BOTTLE TP SCH ×2 (12:30→22:30)
[2023-07-10 18:16] LABS: INR 2.55 (0.83-1.09); PROTHROMBIN TIME (PATIENT) 29.3 SEC (9.7-13.0)
[2023-07-10] MEDS: WARFARIN NA 10 MG TABLET PO SCH (18:27)
[2023-07-10] MEDS: ATORVASTATIN CA 20 MG TABLET (FP) PO SCH (21:58)
[2023-07-10] MEDS: PRAMIPEXOLE DIHYDROCHLORIDE 1 MG TABLET PO SCH (21:58)
[2023-07-10] MEDS: PHENobarbital 30 MG TABLET PO SCH (21:58)
[2023-07-11] MEDS: FUROSEMIDE 40 MG/4 ML INJECTABLE VIAL IVPUSH SCH ×2 (06:24→13:56)
[2023-07-11 08:01] LABS: BASO % 0.6 % (0-2.0); EOS % 2.4 % (0-4.5); HEMATOCRIT 39.4 % (35.4-49); HEMOGLOBIN 12.8 GM/dL (11.7-16.9); LYMPH % 21.4 % (8-40); MCH 31.4 pg (25.7-33.7); MCHC 32.5 g/dl (32.0-35.9); MEAN CELL VOLUME 96.7 fl (80-96); MEAN PLT VOLUME 7.7 fl (7.5-11.1); MONO % 8.5 % (3.8-10.2); NEUT % 67.1 % (42.8-82.8); PLATELET COUNT 268 10^3/uL (134-434); RBC 4.07 M/mm3 (4.00-5.60); RDW 14.4 % (11.9-15.9); WHITE BLOOD COUNT 8.8 K/mm3 (4.0-10.0)
[2023-07-11 08:13] LABS: POTASSIUM 3.2 mmol/L (3.5-5.1)
[2023-07-11 08:19] LABS: BLOOD UREA NITROGEN 13.8 mg/dL (7-18); CALCIUM 8.6 mg/dL (8.5-10.1); MAGNESIUM 1.8 mg/dL (1.8-2.4)
[2023-07-11] MEDS: PRAMIPEXOLE DIHYDROCHLORIDE 0.25 MG TABLET PO SCH ×2 (10:05→18:58)
[2023-07-11] MEDS: carBAMazepine 200 MG TABLET PO SCH ×3 (10:05→18:58)
[2023-07-11] MEDS: DIGOXIN 0.25 MG TABLET PO SCH (10:05)
[2023-07-11] MEDS: ZINC SULFATE 220 MG CAPSULE (FP) PO SCH (10:05)
[2023-07-11] MEDS: PANTOPRAZOLE 40 MG TABLET PO SCH (10:05)
[2023-07-11] MEDS: CLOPIDOGREL BISULFATE 75 MG TABLET (FP) PO SCH (10:05)
[2023-07-11] MEDS: ASCORBIC ACID 250 MG TABLET (FP) PO SCH (10:06)
[2023-07-11] MEDS: CYANOCOBALAMIN 1,000 MCG TABLET (FP) PO SCH (10:06)
[2023-07-11] MEDS: MULTIVITAMINS (DAILY MVI) TABLET (FP) PO SCH (10:07)
[2023-07-11] MEDS: AMMONIUM LACTATE 12% LOTION 225 GM BOTTLE TP SCH ×2 (10:07→22:02)
[2023-07-11 19:17] LABS: INR 2.69 (0.83-1.09); PROTHROMBIN TIME (PATIENT) 30.9 SEC (9.7-13.0)
[2023-07-11] MEDS: WARFARIN NA 10 MG TABLET PO SCH (20:04)
[2023-07-11] MEDS: PHENobarbital 30 MG TABLET PO SCH (21:57)
[2023-07-11] MEDS: ATORVASTATIN CA 20 MG TABLET (FP) PO SCH (21:57)
[2023-07-11] MEDS: PRAMIPEXOLE DIHYDROCHLORIDE 1 MG TABLET PO SCH (21:57)
[2023-07-12] MEDS: FUROSEMIDE 40 MG/4 ML INJECTABLE VIAL IVPUSH SCH ×2 (06:52→13:48)
[2023-07-12 07:46] LABS: BASO % 0.4 % (0-2.0); HEMATOCRIT 37.7 % (35.4-49); HEMOGLOBIN 12.6 GM/dL (11.7-16.9); LYMPH % 24.8 % (8-40); MCH 31.9 pg (25.7-33.7); MCHC 33.3 g/dl (32.0-35.9); MEAN CELL VOLUME 95.6 fl (80-96); MEAN PLT VOLUME 7.8 fl (7.5-11.1); MONO % 8.5 % (3.8-10.2); NEUT % 64.3 % (42.8-82.8); PLATELET COUNT 255 10^3/uL (134-434); RBC 3.95 M/mm3 (4.00-5.60); RDW 14.7 % (11.9-15.9); WHITE BLOOD COUNT 8.3 K/mm3 (4.0-10.0)
[2023-07-12 07:51] LABS: INR 2.34 (0.83-1.09); PROTHROMBIN TIME (PATIENT) 26.9 SEC (9.7-13.0)
[2023-07-12 08:02] LABS: POTASSIUM 3.8 mmol/L (3.5-5.1)
[2023-07-12 08:10] LABS: CALCIUM 8.7 mg/dL (8.5-10.1)
[2023-07-12 08:11] LABS: BLOOD UREA NITROGEN 14.6 mg/dL (7-18)
[2023-07-12] MEDS: DIGOXIN 0.25 MG TABLET PO SCH (10:01)
[2023-07-12] MEDS: ASCORBIC ACID 250 MG TABLET (FP) PO SCH (10:01)
[2023-07-12] MEDS: ZINC SULFATE 220 MG CAPSULE (FP) PO SCH (10:01)
[2023-07-12] MEDS: PANTOPRAZOLE 40 MG TABLET PO SCH (10:01)
[2023-07-12] MEDS: carBAMazepine 200 MG TABLET PO SCH ×3 (10:01→17:45)
[2023-07-12] MEDS: CLOPIDOGREL BISULFATE 75 MG TABLET (FP) PO SCH (10:01)
[2023-07-12] MEDS: CYANOCOBALAMIN 1,000 MCG TABLET (FP) PO SCH (10:01)
[2023-07-12] MEDS: MULTIVITAMINS (DAILY MVI) TABLET (FP) PO SCH (10:01)
[2023-07-12] MEDS: PRAMIPEXOLE DIHYDROCHLORIDE 0.25 MG TABLET PO SCH ×2 (10:01→17:45)
[2023-07-12] MEDS: AMMONIUM LACTATE 12% LOTION 225 GM BOTTLE TP SCH ×2 (12:26→23:01)
[2023-07-12] MEDS: WARFARIN NA 10 MG TABLET PO SCH (17:45)
[2023-07-12 21:45] VITALS: BMI 53.4
[2023-07-12] MEDS: PRAMIPEXOLE DIHYDROCHLORIDE 1 MG TABLET PO SCH (22:53)
[2023-07-12] MEDS: PHENobarbital 30 MG TABLET PO SCH (22:53)
[2023-07-12] MEDS: ATORVASTATIN CA 20 MG TABLET (FP) PO SCH (22:53)
[2023-07-13 06:31] VITALS: BP 130/74; TEMP 98.4
[2023-07-13] MEDS: FUROSEMIDE 40 MG/4 ML INJECTABLE VIAL IVPUSH SCH (06:43)
[2023-07-13 07:06] LABS: BASO % 0.8 % (0-2.0); EOS % 2.1 % (0-4.5); HEMATOCRIT 39.1 % (35.4-49); HEMOGLOBIN 12.8 GM/dL (11.7-16.9); LYMPH % 24.9 % (8-40); MCHC 32.9 g/dl (32.0-35.9); MEAN CELL VOLUME 97.2 fl (80-96); MEAN PLT VOLUME 7.8 fl (7.5-11.1); MONO % 7.5 % (3.8-10.2); NEUT % 64.7 % (42.8-82.8); PLATELET COUNT 265 10^3/uL (134-434); RBC 4.02 M/mm3 (4.00-5.60); WHITE BLOOD COUNT 10.2 K/mm3 (4.0-10.0)
[2023-07-13 07:36] LABS: BLOOD UREA NITROGEN 14.8 mg/dL (7-18); CALCIUM 8.4 mg/dL (8.5-10.1); POTASSIUM 3.8 mmol/L (3.5-5.1)
[2023-07-13] MEDS: carBAMazepine 200 MG TABLET PO SCH ×2 (09:25→12:13)
[2023-07-13] MEDS: DIGOXIN 0.25 MG TABLET PO SCH (09:26)
[2023-07-13] MEDS: PANTOPRAZOLE 40 MG TABLET PO SCH (09:26)
[2023-07-13] MEDS: MULTIVITAMINS (DAILY MVI) TABLET (FP) PO SCH (09:26)
[2023-07-13] MEDS: AMMONIUM LACTATE 12% LOTION 225 GM BOTTLE TP SCH (09:26)
[2023-07-13] MEDS: CLOPIDOGREL BISULFATE 75 MG TABLET (FP) PO SCH (09:26)
[2023-07-13] MEDS: PRAMIPEXOLE DIHYDROCHLORIDE 0.25 MG TABLET PO SCH (09:26)
[2023-07-13 09:27] VITALS: PULSE 81
[2023-07-13] MEDS: ASCORBIC ACID 250 MG TABLET (FP) PO SCH (09:27)
[2023-07-13] MEDS: CYANOCOBALAMIN 1,000 MCG TABLET (FP) PO SCH (09:27)
[2023-07-13] MEDS: ZINC SULFATE 220 MG CAPSULE (FP) PO SCH (09:27)
[2023-07-13] MEDS ORDERED: FUROSEMIDE 40 MG TABLET (FP) PO SCH (14:00)
== END 2023-07-13 14:00 | disposition home or self-care (01) | DRG 291 ==
LOC: JER 17:48 → JERBED 20:20 → J4W 07-06 12:49
PROVIDERS: ADMIT Internal Medicine; ATTEND Internal Medicine
DX: I11.0 Hypertensive heart disease with heart failure (principal); I50.33 Acute on chronic diastolic (congestive) heart failure; I48.20 Chronic atrial fibrillation, unspecified; Z68.43 Body mass index [BMI] 50.0-59.9, adult; I25.10 Atherosclerotic heart disease of native coronary artery without angina pectoris; J44.9 Chronic obstructive pulmonary disease, unspecified; E78.5 Hyperlipidemia, unspecified; G40.909 Epilepsy, unspecified, not intractable, without status epilepticus; I25.2 Old myocardial infarction; D64.9 Anemia, unspecified; E83.51 Hypocalcemia; E88.09 Other disorders of plasma-protein metabolism, not elsewhere classified; E87.5 Hyperkalemia; E53.8 Deficiency of other specified B group vitamins; E83.42 Hypomagnesemia; E66.01 Morbid (severe) obesity due to excess calories; G47.33 Obstructive sleep apnea (adult) (pediatric); I35.0 Nonrheumatic aortic (valve) stenosis
CPT/HCPCS: 36415; 71045-TC-FY; 71250-TC; 80048; 80053; 80061; 80162; 80201; 81003; 83036; 83735; 83880; 84484; 85025; 85610; 85730; 87086; 87635; 93005; 93010; 97116-GP; 97162-GP; 99285-25

== ENCOUNTER 2023-08-11 23:16 | Inpatient (IN) | payer OTHER ==
[2023-08-11 23:38] VITALS: BMI 55.7
[2023-08-12 01:26] LABS: BASO % 0.9 % (0-2.0); EOS % 0.7 % (0-4.5); HEMATOCRIT 33.8 % (35.4-49); HEMOGLOBIN 11.2 GM/dL (11.7-16.9); LYMPH % 16.1 % (8-40); MCH 32.7 pg (25.7-33.7); MCHC 33.1 g/dl (32.0-35.9); MEAN CELL VOLUME 98.6 fl (80-96); MEAN PLT VOLUME 7.4 fl (7.5-11.1); MONO % 5.7 % (3.8-10.2); NEUT % 76.6 % (42.8-82.8); PLATELET COUNT 236 10^3/uL (134-434); RBC 3.43 M/mm3 (4.00-5.60); RDW 15.8 % (11.9-15.9); WHITE BLOOD COUNT 10.4 K/mm3 (4.0-10.0)
[2023-08-12 01:39] LABS: INR 2.73 (0.83-1.09); PROTHROMBIN TIME (PATIENT) 31.3 SEC (9.7-13.0)
[2023-08-12 01:42] LABS: ACTIVATED PTT 36.8 SECONDS (25.2-36.5)
[2023-08-12] MEDS ORDERED: ASPIRIN 81 MG CHEWABLE TABLETS PO ONE (02:24)
[2023-08-12] MEDS ORDERED: ASPIRIN 81 MG CHEWABLE TABLETS ONE (02:35)
[2023-08-12 02:41] LABS: POTASSIUM 3.6 mmol/L (3.5-5.1)
[2023-08-12 02:43] LABS: CALCIUM 8.4 mg/dL (8.5-10.1)
[2023-08-12 02:44] LABS: BLOOD UREA NITROGEN 19.2 mg/dL (7-18)
[2023-08-12 02:47] LABS: CREATININE 0.9 mg/dL (0.55-1.3)
[2023-08-12 02:49] LABS: BILIRUBIN,TOTAL 0.2 mg/dL (0.2-1); TOT PROT 7.3 g/dl (6.4-8.2)
[2023-08-12] MEDS ORDERED: CLOPIDOGREL BISULFATE 300 MG TABLET PO ONE (04:01)
[2023-08-12] MEDS ORDERED: CLOPIDOGREL BISULFATE 300 MG TABLET ONE (04:40)
[2023-08-12] MEDS ORDERED: FUROSEMIDE 40 MG/4 ML INJECTABLE VIAL ONE (06:20)
[2023-08-12] MEDS ORDERED: carBAMazepine 200 MG TABLET ONE (06:20)
[2023-08-12 06:22] LABS: INR 2.86 (0.83-1.09); PROTHROMBIN TIME (PATIENT) 32.8 SEC (9.7-13.0)
[2023-08-12 06:24] LABS: BASO % 0.5 % (0-2.0); EOS % 1.3 % (0-4.5); HEMATOCRIT 33.1 % (35.4-49); HEMOGLOBIN 11.2 GM/dL (11.7-16.9); MCH 33.3 pg (25.7-33.7); MCHC 33.7 g/dl (32.0-35.9); MEAN CELL VOLUME 98.8 fl (80-96); MEAN PLT VOLUME 7.5 fl (7.5-11.1); MONO % 6.8 % (3.8-10.2); NEUT % 68.4 % (42.8-82.8); PLATELET COUNT 203 10^3/uL (134-434); RBC 3.35 M/mm3 (4.00-5.60); RDW 15.2 % (11.9-15.9)
[2023-08-12] MEDS: carBAMazepine 200 MG TABLET PO SCH ×3 (06:28→22:50)
[2023-08-12 06:30] LABS: ALBUMIN 2.8 g/dl (3.4-5.0); CALCIUM 8.2 mg/dL (8.5-10.1)
[2023-08-12 06:31] LABS: BLOOD UREA NITROGEN 18.8 mg/dL (7-18); MAGNESIUM 2.1 mg/dL (1.8-2.4)
[2023-08-12 06:33] LABS: CREATININE 0.8 mg/dL (0.55-1.3); PHOSPHOROUS 3.8 mg/dL (2.5-4.9)
[2023-08-12 06:34] LABS: TOT PROT 6.8 g/dl (6.4-8.2)
[2023-08-12 06:43] LABS: BILIRUBIN,TOTAL 0.2 mg/dL (0.2-1)
[2023-08-12] MEDS: FUROSEMIDE 40 MG/4 ML INJECTABLE VIAL IVPUSH SCH ×2 (06:51→14:39)
[2023-08-12] MEDS ORDERED: POTASSIUM CHLORIDE TABS 20 MEQ TABLET.ER (FP) PO ONE (09:53)
[2023-08-12] MEDS ORDERED: FUROSEMIDE 20 MG TABLET (FP) PO SCH (10:00)
[2023-08-12] MEDS: GABAPENTIN 100 MG CAPSULE PO SCH ×2 (10:15→22:07)
[2023-08-12] MEDS: PANTOPRAZOLE 40 MG TABLET PO SCH (10:15)
[2023-08-12] MEDS: CLOPIDOGREL BISULFATE 75 MG TABLET (FP) PO SCH (10:15)
[2023-08-12] MEDS: PRAMIPEXOLE DIHYDROCHLORIDE 0.25 MG TABLET PO SCH (10:15)
[2023-08-12] MEDS: DIGOXIN 0.25 MG TABLET PO SCH (10:15)
[2023-08-12] MEDS: POTASSIUM CHLORIDE TABS 20 MEQ TABLET.ER (FP) PO SCH (10:15)
[2023-08-12 10:43] LABS: EPI CELLS 5 /uL (0-25.1); HYALINE CASTS 0 /uL (0-3.1); URINE APPEARANCE CLEAR; URINE BACTERIA 37 /uL (0-1359); URINE BILIRUBIN NEGATIVE (NEGATIVE); URINE COLOR YELLOW; URINE GLUCOSE (UA) NEGATIVE (NEGATIVE); URINE KETONE NEGATIVE (NEGATIVE); URINE LEUK ESTERASE NEGATIVE (NEGATIVE); URINE NITRITE NEGATIVE (NEGATIVE); URINE PROTEIN NEGATIVE (NEGATIVE); URINE RBC 154 /uL (0-23.9); URINE UROBILINOGEN 0.2 mg/dL (0.2-1.0); URINE WBC 3 /uL (0-25.8)
[2023-08-12] MEDS ORDERED: PANTOPRAZOLE 40 MG TABLET PO SCH (10:45)
[2023-08-12 20:24] LABS: INR 2.74 (0.83-1.09); PROTHROMBIN TIME (PATIENT) 31.5 SEC (9.7-13.0)
[2023-08-12] MEDS: WARFARIN NA 10 MG TABLET PO SCH (20:34)
[2023-08-12] MEDS: ATORVASTATIN CA 10 MG TABLET (FP) PO SCH (22:07)
[2023-08-12] MEDS: PHENobarbital 30 MG TABLET PO SCH (22:07)
[2023-08-12] MEDS: PRAMIPEXOLE DIHYDROCHLORIDE 1 MG TABLET PO SCH (22:50)
[2023-08-13] MEDS: FUROSEMIDE 40 MG/4 ML INJECTABLE VIAL IVPUSH SCH ×2 (06:27→15:11)
[2023-08-13] MEDS: carBAMazepine 200 MG TABLET PO SCH ×3 (06:27→21:45)
[2023-08-13 07:09] LABS: BASO % 0.4 % (0-2.0); EOS % 2.1 % (0-4.5); HEMATOCRIT 33.3 % (35.4-49); LYMPH % 17.4 % (8-40); MCH 32.7 pg (25.7-33.7); MEAN CELL VOLUME 98.9 fl (80-96); MEAN PLT VOLUME 7.9 fl (7.5-11.1); MONO % 6.5 % (3.8-10.2); NEUT % 73.6 % (42.8-82.8); PLATELET COUNT 206 10^3/uL (134-434); RBC 3.37 M/mm3 (4.00-5.60); RDW 15.6 % (11.9-15.9); WHITE BLOOD COUNT 8.8 K/mm3 (4.0-10.0)
[2023-08-13 07:21] LABS: POTASSIUM 3.8 mmol/L (3.5-5.1)
[2023-08-13 07:27] LABS: CALCIUM 8.1 mg/dL (8.5-10.1)
[2023-08-13 07:28] LABS: BLOOD UREA NITROGEN 14.8 mg/dL (7-18); MAGNESIUM 1.9 mg/dL (1.8-2.4)
[2023-08-13 07:31] LABS: CREATININE 0.9 mg/dL (0.55-1.3)
[2023-08-13] MEDS: PRAMIPEXOLE DIHYDROCHLORIDE 0.25 MG TABLET PO SCH (09:45)
[2023-08-13] MEDS: PANTOPRAZOLE 40 MG TABLET PO SCH (09:45)
[2023-08-13] MEDS: DIGOXIN 0.25 MG TABLET PO SCH (09:46)
[2023-08-13] MEDS: GABAPENTIN 100 MG CAPSULE PO SCH ×2 (09:46→21:45)
[2023-08-13] MEDS: CLOPIDOGREL BISULFATE 75 MG TABLET (FP) PO SCH (09:46)
[2023-08-13 16:43] LABS: INR 2.03 (0.83-1.09); PROTHROMBIN TIME (PATIENT) 23.4 SEC (9.7-13.0)
[2023-08-13] MEDS: WARFARIN NA 10 MG TABLET PO SCH (18:24)
[2023-08-13] MEDS: ATORVASTATIN CA 10 MG TABLET (FP) PO SCH (21:44)
[2023-08-13] MEDS: PRAMIPEXOLE DIHYDROCHLORIDE 1 MG TABLET PO SCH (21:44)
[2023-08-13] MEDS: PHENobarbital 30 MG TABLET PO SCH (21:45)
[2023-08-14] MEDS: FUROSEMIDE 40 MG/4 ML INJECTABLE VIAL IVPUSH SCH ×2 (06:33→15:16)
[2023-08-14] MEDS: carBAMazepine 200 MG TABLET PO SCH ×3 (06:33→21:19)
[2023-08-14 07:24] LABS: BASO % 0.6 % (0-2.0); EOS % 2.1 % (0-4.5); HEMATOCRIT 33.7 % (35.4-49); HEMOGLOBIN 11.3 GM/dL (11.7-16.9); LYMPH % 21.5 % (8-40); MCH 33.1 pg (25.7-33.7); MCHC 33.6 g/dl (32.0-35.9); MEAN CELL VOLUME 98.6 fl (80-96); MEAN PLT VOLUME 7.9 fl (7.5-11.1); MONO % 6.6 % (3.8-10.2); NEUT % 69.2 % (42.8-82.8); PLATELET COUNT 216 10^3/uL (134-434); RBC 3.42 M/mm3 (4.00-5.60); RDW 15.8 % (11.9-15.9); WHITE BLOOD COUNT 9.1 K/mm3 (4.0-10.0)
[2023-08-14 07:31] LABS: POTASSIUM 3.7 mmol/L (3.5-5.1)
[2023-08-14 07:34] LABS: CALCIUM 8.3 mg/dL (8.5-10.1)
[2023-08-14 07:35] LABS: BLOOD UREA NITROGEN 13.7 mg/dL (7-18)
[2023-08-14 07:38] LABS: CREATININE 0.9 mg/dL (0.55-1.3)
[2023-08-14] MEDS: CLOPIDOGREL BISULFATE 75 MG TABLET (FP) PO SCH (10:12)
[2023-08-14] MEDS: POTASSIUM CHLORIDE TABS 20 MEQ TABLET.ER (FP) PO SCH (10:12)
[2023-08-14] MEDS: GABAPENTIN 100 MG CAPSULE PO SCH ×2 (10:12→21:19)
[2023-08-14] MEDS: PANTOPRAZOLE 40 MG TABLET PO SCH (10:13)
[2023-08-14] MEDS: DIGOXIN 0.25 MG TABLET PO SCH (10:13)
[2023-08-14] MEDS: PRAMIPEXOLE DIHYDROCHLORIDE 0.25 MG TABLET PO SCH (10:13)
[2023-08-14 16:55] LABS: INR 1.72 (0.83-1.09); PROTHROMBIN TIME (PATIENT) 19.8 SEC (9.7-13.0)
[2023-08-14] MEDS ORDERED: WARFARIN NA 5 MG TABLET PO ONE (18:00)
[2023-08-14] MEDS: SILVER SULFADIAZINE 1% TOP CREAM 50 GM JAR TP SCH (18:33)
[2023-08-14] MEDS: WARFARIN NA 10 MG TABLET PO SCH (18:36)
[2023-08-14] MEDS: ATORVASTATIN CA 10 MG TABLET (FP) PO SCH (21:19)
[2023-08-14] MEDS: PHENobarbital 30 MG TABLET PO SCH (21:19)
[2023-08-14] MEDS: PRAMIPEXOLE DIHYDROCHLORIDE 1 MG TABLET PO SCH (21:20)
[2023-08-15] MEDS: FUROSEMIDE 40 MG/4 ML INJECTABLE VIAL IVPUSH SCH ×2 (06:18→14:19)
[2023-08-15] MEDS: carBAMazepine 200 MG TABLET PO SCH ×2 (06:18→14:19)
[2023-08-15 07:12] LABS: BASO % 0.7 % (0-2.0); EOS % 2.1 % (0-4.5); HEMATOCRIT 35.2 % (35.4-49); HEMOGLOBIN 11.8 GM/dL (11.7-16.9); LYMPH % 20.8 % (8-40); MCH 33.1 pg (25.7-33.7); MCHC 33.5 g/dl (32.0-35.9); MEAN CELL VOLUME 98.8 fl (80-96); MEAN PLT VOLUME 7.8 fl (7.5-11.1); MONO % 6.8 % (3.8-10.2); NEUT % 69.6 % (42.8-82.8); PLATELET COUNT 222 10^3/uL (134-434); RBC 3.56 M/mm3 (4.00-5.60); RDW 15.2 % (11.9-15.9); WHITE BLOOD COUNT 9.2 K/mm3 (4.0-10.0)
[2023-08-15 07:37] LABS: BLOOD UREA NITROGEN 16.2 mg/dL (7-18); CALCIUM 8.5 mg/dL (8.5-10.1)
[2023-08-15 07:41] LABS: CREATININE 0.9 mg/dL (0.55-1.3)
[2023-08-15] MEDS: GABAPENTIN 100 MG CAPSULE PO SCH (09:29)
[2023-08-15] MEDS: DIGOXIN 0.25 MG TABLET PO SCH (09:29)
[2023-08-15] MEDS: CLOPIDOGREL BISULFATE 75 MG TABLET (FP) PO SCH (09:29)
[2023-08-15] MEDS: SILVER SULFADIAZINE 1% TOP CREAM 50 GM JAR TP SCH ×2 (09:30→09:44)
[2023-08-15] MEDS: PANTOPRAZOLE 40 MG TABLET PO SCH (09:30)
[2023-08-15] MEDS: PRAMIPEXOLE DIHYDROCHLORIDE 0.25 MG TABLET PO SCH (09:30)
[2023-08-15 17:20] VITALS: BP 122/62; PULSE 74; RESP 18; TEMP 97.7
== END 2023-08-15 18:00 | disposition short-term general hospital (02) | DRG 291 ==
LOC: JER 23:16 → JERBED 08-12 03:35 → OBSVTOIN 08-12 05:10 → J4W 08-12 18:50
PROVIDERS: ADMIT Internal Medicine; ATTEND Internal Medicine
DX: I11.0 Hypertensive heart disease with heart failure (principal); I50.33 Acute on chronic diastolic (congestive) heart failure; J96.21 Acute and chronic respiratory failure with hypoxia; I24.89 Other forms of acute ischemic heart disease; Z68.43 Body mass index [BMI] 50.0-59.9, adult; E66.01 Morbid (severe) obesity due to excess calories; I48.91 Unspecified atrial fibrillation; I25.10 Atherosclerotic heart disease of native coronary artery without angina pectoris; G40.909 Epilepsy, unspecified, not intractable, without status epilepticus; G25.81 Restless legs syndrome; I35.0 Nonrheumatic aortic (valve) stenosis; Z95.5 Presence of coronary angioplasty implant and graft
CPT/HCPCS: 0241U-QW; 36415; 71045-TC-FY; 80048; 80053; 80061; 80162; 81003; 83036; 83735; 83880; 84100; 84443; 84484; 85025; 85610; 85730; 93005; 93010; 99285-25; G0378

== ENCOUNTER 2023-09-20 03:09 | Emergency (ER) | payer OTHER ==
[2023-09-20 03:17] VITALS: BMI 55.7
[2023-09-20] MEDS ORDERED: LIDOCAINE HCL 2% 100 MG/5 ML DISP.SYRIN IVPUSH ONE (03:33)
[2023-09-20] MEDS ORDERED: AMIODARONE HCL INJECTION 150 MG in DEXTROSE 5%-WATER - 100 ML IVPB ONE ×2 (03:35→06:43)
[2023-09-20] MEDS ORDERED: ADENOSINE 6 MG/2 ML VIAL IVPUSH ONE ×3 (03:39→06:33)
[2023-09-20] MEDS ORDERED: AMIODARONE IN DEXTROSE,ISO-OSM 360 MG/200 ML BAG IV SCH ×2 (03:45→06:45)
[2023-09-20] MEDS ORDERED: fentaNYL CITRATE 250 MCG/5 ML VIAL IVPUSH ONE (03:53)
[2023-09-20 04:25] LABS: BASO % 0.4 % (0-2.0); EOS % 0.8 % (0-4.5); HEMATOCRIT 35.9 % (35.4-49); HEMOGLOBIN 12.3 GM/dL (11.7-16.9); LYMPH % 13.9 % (8-40); MCH 33.6 pg (25.7-33.7); MCHC 34.3 g/dl (32.0-35.9); MEAN CELL VOLUME 97.9 fl (80-96); MEAN PLT VOLUME 7.5 fl (7.5-11.1); MONO % 6.6 % (3.8-10.2); NEUT % 78.3 % (42.8-82.8); PLATELET COUNT 291 10^3/uL (134-434); RBC 3.67 M/mm3 (4.00-5.60); RDW 14.9 % (11.9-15.9); WHITE BLOOD COUNT 8.6 K/mm3 (4.0-10.0)
[2023-09-20 04:35] LABS: INR 1.68 (0.83-1.09); PROTHROMBIN TIME (PATIENT) 19.4 SEC (9.7-13.0)
[2023-09-20 04:38] LABS: ACTIVATED PTT 31.9 SECONDS (25.2-36.5)
[2023-09-20 04:58] LABS: ALBUMIN 3.2 g/dl (3.4-5.0); BILIRUBIN,TOTAL 0.2 mg/dL (0.2-1); BLOOD UREA NITROGEN 17.8 mg/dL (7-18); POTASSIUM 4.1 mmol/L (3.5-5.1); TOT PROT 7.8 g/dl (6.4-8.2)
[2023-09-20 06:24] VITALS: TEMP 97.7
[2023-09-20] MEDS ORDERED: FENTANYL CITRATE/PF 50 MCG/ML VIAL ONE (06:46)
[2023-09-20] MEDS ORDERED: AMIODARONE IN DEXTROSE,ISO-OSM 150 MG/100 ML BAG ONE (06:47)
[2023-09-20] MEDS ORDERED: AMIODARONE IN DEXTROSE,ISO-OSM 360 MG/200 ML BAG ONE ×2 (07:34→07:39)
[2023-09-20 08:18] VITALS: BP 121/72; PULSE 208; RESP 20
== END 2023-09-20 08:45 | disposition short-term general hospital (02) ==
LOC: JER 03:09
PROC: 3E033NZ Introduction of Analgesics, Hypnotics, Sedatives into Peripheral Vein, Percutaneous Approach (ICD-10-PCS; principal; 2023-09-20)
PROC: 3E033GC Introduction of Other Therapeutic Substance into Peripheral Vein, Percutaneous Approach (ICD-10-PCS; 2023-09-20)
DX: R00.0 Tachycardia, unspecified (principal); Z20.822 Contact with and (suspected) exposure to COVID-19
CPT/HCPCS: 0241U-QW; 36415; 71045-TC-FY; 80053; 82962; 84484; 85025; 85610; 85730; 86850; 86900; 86901; 93005; 93010; 99285-25

== ENCOUNTER 2024-03-05 22:29 | Inpatient (IN) | payer OTHER ==
[2024-03-05] MEDS ORDERED: ALBUTEROL SO4 2.5/IPRATROPIUM 0.5 INH SOL 3 ML VIAL.NEB. NEB ONE (23:39)
[2024-03-05] MEDS ORDERED: DOXYCYCLINE HYCLATE 100 MG CAPSULE PO ONE (23:48)
[2024-03-05] MEDS ORDERED: CEFTRIAXONE 1 GM/50 ML BAG ONE (23:49)
[2024-03-05] MEDS ORDERED: methylPREDNISolone NA SUCC 125 MG/2 ML VIAL ONE (23:49)
[2024-03-05] MEDS ORDERED: ACETAMINOPHEN INJECTION 100 ML IVPB ONE (23:49)
[2024-03-06 00:14] LABS: BASO % 0.3 % (0-2.0); HEMATOCRIT 35.2 % (35.4-49); HEMOGLOBIN 11.9 GM/dL (11.7-16.9); LYMPH % 12.4 % (8-40); MCH 32.9 pg (25.7-33.7); MCHC 33.9 g/dl (32.0-35.9); MEAN CELL VOLUME 96.9 fl (80-96); MONO % 8.9 % (3.8-10.2); NEUT % 78.4 % (42.8-82.8); PLATELET COUNT 158 10^3/uL (134-434); RBC 3.63 M/mm3 (4.00-5.60); RDW 13.4 % (11.9-15.9); WHITE BLOOD COUNT 5.7 K/mm3 (4.0-10.0)
[2024-03-06] MEDS: ACETAMINOPHEN 1000 MG/100 ML BAG IVPB ONE (00:20)
[2024-03-06] MEDS: DOXYCYCLINE HYCLATE 100 MG CAPSULE PO ONE (00:20)
[2024-03-06] MEDS: methylPREDNISolone NA SUCC 125 MG/2 ML VIAL IVPB ONE (00:20)
[2024-03-06] MEDS: ALBUTEROL SO4 2.5/IPRATROPIUM 0.5 INH SOL 3 ML VIAL.NEB. NEB ONE (00:20)
[2024-03-06] MEDS: CEFTRIAXONE 1,000 MG in DEXTROSE 5%-WATER - 50 ML IVPB ONE (00:21)
[2024-03-06 00:24] LABS: VENOUS BASE EXCESS 5.2 mmol/L (-2-2); VENOUS PCO2 47.7 mmHg (38-52); VENOUS PH 7.428 (7.310-7.410)
[2024-03-06 00:30] LABS: POTASSIUM 3.7 mmol/L (3.5-5.1)
[2024-03-06 00:31] LABS: CALCIUM 7.7 mg/dL (8.5-10.1)
[2024-03-06 00:33] LABS: ALBUMIN 2.9 g/dl (3.4-5.0); BLOOD UREA NITROGEN 16.5 mg/dL (7-18)
[2024-03-06 00:36] LABS: BILIRUBIN,TOTAL 0.5 mg/dL (0.2-1); CREATININE 1.1 mg/dL (0.55-1.3)
[2024-03-06 00:38] LABS: TOT PROT 6.9 g/dl (6.4-8.2)
[2024-03-06 00:41] LABS: N-TERMINAL BNP 257.4 pg/ml (5-125)
[2024-03-06 01:35] LABS: ERYTHROCYTE SEDIMENTATION RATE 99 mm/hr (0-20)
[2024-03-06] MEDS ORDERED: carBAMazepine 200 MG TABLET PO SCH (01:45)
[2024-03-06] MEDS ORDERED: ALBUTEROL SO4 2.5/IPRATROPIUM 0.5 INH SOL 3 ML VIAL.NEB. NEB PRN (02:13)
[2024-03-06] MEDS: PANTOPRAZOLE 40 MG TABLET PO SCH (02:20)
[2024-03-06 03:39] LABS: INR 2.61 (0.83-1.09); PROTHROMBIN TIME (PATIENT) 29.2 SEC (9.7-13.0)
[2024-03-06 03:42] LABS: ACTIVATED PTT 36.2 SECONDS (25.2-36.5)
[2024-03-06 03:46] LABS: EPI CELLS 5 /uL (0-25.1); HYALINE CASTS 0 /uL (0-3.1); PH,URINE 7.5 (5.0-8.0); URINE APPEARANCE CLEAR; URINE BACTERIA 1 /uL (0-1359); URINE BILIRUBIN NEGATIVE (NEGATIVE); URINE COLOR YELLOW; URINE GLUCOSE (UA) NEGATIVE (NEGATIVE); URINE KETONE TRACE (NEGATIVE); URINE LEUK ESTERASE NEGATIVE (NEGATIVE); URINE NITRITE NEGATIVE (NEGATIVE); URINE PROTEIN 2+ (NEGATIVE); URINE RBC 1228 /uL (0-23.9); URINE WBC 6 /uL (0-25.8)
[2024-03-06 05:05] VITALS: BMI 55.0
[2024-03-06] MEDS ORDERED: FUROSEMIDE 40 MG TABLET (FP) PO SCH (06:00)
[2024-03-06] MEDS: FUROSEMIDE 40 MG, FUROSEMIDE 20 MG PO SCH (06:41)
[2024-03-06] MEDS: PRAMIPEXOLE DIHYDROCHLORIDE 0.25 MG TABLET PO SCH (09:22)
[2024-03-06] MEDS: CLOPIDOGREL BISULFATE 75 MG TABLET (FP) PO SCH (09:23)
[2024-03-06] MEDS: CYANOCOBALAMIN 1,000 MCG TABLET (FP) PO SCH (09:23)
[2024-03-06] MEDS: DIGOXIN 0.25 MG TABLET PO SCH (09:24)
[2024-03-06] MEDS: GABAPENTIN 100 MG CAPSULE PO SCH (09:28)
[2024-03-06] MEDS ORDERED: MINERAL OIL/PET HY-PHL TOPICAL OINTMENT 454 GM JAR TP SCH (10:00)
[2024-03-06] MEDS ORDERED: SILVER SULFADIAZINE 1% TOP CREAM 50 GM JAR TP SCH (10:00)
[2024-03-06] MEDS: AMIODARONE HCL 100 MG TABLET PO SCH (12:28)
[2024-03-06] MEDS: VERAPAMIL HCL 240 MG E.R. TABLET PO SCH (12:28)
[2024-03-06] MEDS: ASPIRIN COATED 81 MG TABLET.EC PO SCH (12:28)
[2024-03-06] MEDS: carBAMazepine 200 MG TABLET PO SCH (12:36)
[2024-03-06] MEDS: FUROSEMIDE 40 MG TABLET (FP) PO SCH (13:51)
[2024-03-06] MEDS: NYSTATIN 100,000 UNIT/GM TOPICAL CREAM 15 GM TUBE TP SCH (13:52)
[2024-03-06] MEDS: SILVER SULFADIAZINE 1% TOP CREAM 50 GM JAR TP SCH (13:52)
[2024-03-06] MEDS: MINERAL OIL/PET HY-PHL TOPICAL OINTMENT 454 GM JAR TP SCH (13:53)
[2024-03-06 16:15] LABS: INR 2.4 (0.83-1.09); PROTHROMBIN TIME (PATIENT) 26.4 SEC (9.7-13.0)
[2024-03-06] MEDS: CEFTRIAXONE 2 GM in DEXTROSE 5%-WATER 100 ML IVPB SCH (17:54)
[2024-03-06] MEDS: WARFARIN NA 10 MG TABLET PO SCH (17:54)
[2024-03-06] MEDS ORDERED: WARFARIN NA 10 MG TABLET PO SCH (18:00)
[2024-03-06] MEDS: PHENobarbital 30 MG TABLET PO SCH (21:26)
[2024-03-06] MEDS ORDERED: ATORVASTATIN CA 20 MG TABLET (FP) PO SCH (22:00)
[2024-03-06] MEDS: PRAMIPEXOLE DIHYDROCHLORIDE 1 MG TABLET PO SCH (22:57)
[2024-03-07] MEDS: ACETAMINOPHEN 325 MG TABLET (FP) PO PRN (05:35)
[2024-03-07 08:01] LABS: HEMATOCRIT 34.6 % (35.4-49); HEMOGLOBIN 11.9 GM/dL (11.7-16.9); MCH 32.7 pg (25.7-33.7); MCHC 34.3 g/dl (32.0-35.9); MEAN CELL VOLUME 95.5 fl (80-96); MEAN PLT VOLUME 7.1 fl (7.5-11.1); PLATELET COUNT 164 10^3/uL (134-434); RBC 3.63 M/mm3 (4.00-5.60); RDW 13.7 % (11.9-15.9); WHITE BLOOD COUNT 6.8 K/mm3 (4.0-10.0)
[2024-03-07 09:26] LABS: ANISOCYTOSIS 0; HELMET CELLS 0; HOWELL-JOLLY BODIES 0; MACROCYTOSIS 0; OVALOCYTE 0; ROULEAU 0; SICKELED CELLS 0; TARGET CELLS 0; TEAR DROP CELLS 0; TOXIC GRANULATION 0
[2024-03-07] MEDS: POTASSIUM CHLORIDE TABS 20 MEQ TABLET.ER (FP) PO SCH (09:31)
[2024-03-07 11:07] LABS: ERYTHROCYTE SEDIMENTATION RATE 96 mm/hr (0-20)
[2024-03-07 16:25] LABS: INR 2.04 (0.83-1.09)
[2024-03-07] MEDS: WARFARIN NA 5 MG TABLET PO SCH (17:05)
[2024-03-08 18:51] LABS: INR 2.13 (0.83-1.09); PROTHROMBIN TIME (PATIENT) 23.5 SEC (9.7-13.0)
[2024-03-08] MEDS: diphenhydrAMINE HCL 25 MG CAPSULE (FP) PO PRN (23:51)
[2024-03-09 08:48] LABS: BASO % 0.4 % (0-2.0); EOS % 3.6 % (0-4.5); HEMOGLOBIN 12.6 GM/dL (11.7-16.9); LYMPH % 20.9 % (8-40); MCH 33.2 pg (25.7-33.7); MCHC 34.9 g/dl (32.0-35.9); MEAN CELL VOLUME 95.2 fl (80-96); MEAN PLT VOLUME 7.2 fl (7.5-11.1); MONO % 8.5 % (3.8-10.2); NEUT % 66.6 % (42.8-82.8); PLATELET COUNT 207 10^3/uL (134-434); RBC 3.79 M/mm3 (4.00-5.60); RDW 13.2 % (11.9-15.9); WHITE BLOOD COUNT 6.1 K/mm3 (4.0-10.0)
[2024-03-09 09:01] LABS: POTASSIUM 3.6 mmol/L (3.5-5.1)
[2024-03-09 09:03] LABS: BLOOD UREA NITROGEN 15.6 mg/dL (7-18); CALCIUM 8.3 mg/dL (8.5-10.1)
[2024-03-09 09:07] LABS: CREATININE 0.8 mg/dL (0.55-1.3)
[2024-03-09 10:13] LABS: ERYTHROCYTE SEDIMENTATION RATE 56 mm/hr (0-20)
[2024-03-09] MEDS: GABAPENTIN 100 MG CAPSULE PO SCH (13:10)
[2024-03-09 17:38] LABS: INR 2.14 (0.83-1.09); PROTHROMBIN TIME (PATIENT) 23.7 SEC (9.7-13.0)
[2024-03-10] MEDS: GABAPENTIN 100 MG CAPSULE PO ONE (10:51)
[2024-03-10] MEDS: GABAPENTIN 100 MG CAPSULE PO SCH (14:10)
[2024-03-10] MEDS: ACETAMINOPHEN 500 MG TABLET (FP) PO ONE (14:11)
[2024-03-10 17:11] LABS: INR 2.41 (0.83-1.09); PROTHROMBIN TIME (PATIENT) 26.5 SEC (9.7-13.0)
[2024-03-11] MEDS: GABAPENTIN 100 MG CAPSULE PO SCH (10:23)
[2024-03-11] MEDS: ACETAMINOPHEN 325 MG TABLET (FP) PO SCH (10:23)
[2024-03-11 15:38] LABS: INR 2.48 (0.83-1.09); PROTHROMBIN TIME (PATIENT) 27.8 SEC (9.7-13.0)
[2024-03-12] MEDS: GABAPENTIN 300 MG CAPSULE PO SCH (14:42)
[2024-03-12 17:49] LABS: INR 2.65 (0.83-1.09); PROTHROMBIN TIME (PATIENT) 29.1 SEC (9.7-13.0)
[2024-03-13 15:07] LABS: INR 2.9 (0.83-1.09); PROTHROMBIN TIME (PATIENT) 32.3 SEC (9.7-13.0)
[2024-03-13] MEDS ORDERED: ALBUTEROL SO4 2.5/IPRATROPIUM 0.5 INH SOL 3 ML VIAL.NEB. NEB PRN (18:54)
[2024-03-13] MEDS ORDERED: diphenhydrAMINE HCL 25 MG CAPSULE (FP) PO PRN (18:54)
[2024-03-13] MEDS: SILVER SULFADIAZINE 1% TOP CREAM 50 GM JAR TP SCH (21:55)
[2024-03-13] MEDS: GABAPENTIN 300 MG CAPSULE PO SCH (21:57)
[2024-03-13] MEDS: PRAMIPEXOLE DIHYDROCHLORIDE 1 MG TABLET PO SCH (21:57)
[2024-03-13] MEDS: ACETAMINOPHEN 325 MG TABLET (FP) PO SCH (21:57)
[2024-03-13] MEDS: PHENobarbital 30 MG TABLET PO SCH (21:57)
[2024-03-13] MEDS: MINERAL OIL/PET HY-PHL TOPICAL OINTMENT 454 GM JAR TP SCH (21:59)
[2024-03-13] MEDS: NYSTATIN 100,000 UNIT/GM TOPICAL CREAM 15 GM TUBE TP SCH (22:00)
[2024-03-13] MEDS: VERAPAMIL HCL 240 MG E.R. TABLET PO SCH (22:05)
[2024-03-14] MEDS: FUROSEMIDE 40 MG TABLET (FP) PO SCH (05:56)
[2024-03-14 07:57] LABS: BASO % 0.5 % (0-2.0); EOS % 2.1 % (0-4.5); HEMATOCRIT 36.6 % (35.4-49); HEMOGLOBIN 12.3 GM/dL (11.7-16.9); LYMPH % 19.2 % (8-40); MCH 32.5 pg (25.7-33.7); MCHC 33.6 g/dl (32.0-35.9); MEAN CELL VOLUME 96.6 fl (80-96); MEAN PLT VOLUME 7.2 fl (7.5-11.1); MONO % 7.5 % (3.8-10.2); NEUT % 70.7 % (42.8-82.8); PLATELET COUNT 288 10^3/uL (134-434); RBC 3.79 M/mm3 (4.00-5.60); RDW 13.3 % (11.9-15.9); WHITE BLOOD COUNT 7.6 K/mm3 (4.0-10.0)
[2024-03-14 08:05] LABS: CALCIUM 8.6 mg/dL (8.5-10.1)
[2024-03-14 08:09] LABS: CREATININE 0.9 mg/dL (0.55-1.3)
[2024-03-14] MEDS: PRAMIPEXOLE DIHYDROCHLORIDE 0.25 MG TABLET PO SCH (09:17)
[2024-03-14] MEDS: ASPIRIN COATED 81 MG TABLET.EC PO SCH (09:17)
[2024-03-14] MEDS: AMIODARONE HCL 100 MG TABLET PO SCH (09:18)
[2024-03-14] MEDS: PANTOPRAZOLE 40 MG TABLET PO SCH (09:18)
[2024-03-14] MEDS: CYANOCOBALAMIN 1,000 MCG TABLET (FP) PO SCH (09:18)
[2024-03-14] MEDS: carBAMazepine 200 MG TABLET PO SCH (09:19)
[2024-03-14] MEDS: CEFTRIAXONE 2 GM in DEXTROSE 5%-WATER 100 ML IVPB SCH (09:20)
[2024-03-14] MEDS: oxyCODONE HCL 5 MG TABLET PO ONE (10:15)
[2024-03-14 16:49] LABS: INR 2.74 (0.83-1.09); PROTHROMBIN TIME (PATIENT) 30.1 SEC (9.7-13.0)
[2024-03-14] MEDS: oxyCODONE HCL 5 MG TABLET PO PRN (17:21)
[2024-03-14] MEDS: WARFARIN NA 5 MG TABLET PO SCH (17:21)
[2024-03-15] MEDS: POTASSIUM CHLORIDE TABS 20 MEQ TABLET.ER (FP) PO SCH (09:12)
[2024-03-15] MEDS: oxyCODONE HCL 5 MG TABLET PO PRN (12:23)
[2024-03-15 17:48] LABS: INR 2.75 (0.83-1.09); PROTHROMBIN TIME (PATIENT) 30.7 SEC (9.7-13.0)
[2024-03-16] MEDS: DOCUSATE SODIUM 100 MG CAPSULE (FP) PO SCH (13:15)
[2024-03-16] MEDS: POLYETHYLENE GLYCOL (HEALTHYLAX) 3350 17 GM PACKET PO SCH (13:15)
[2024-03-16] MEDS: LIDOCAINE 5% TOPICAL PATCH TP SCH (13:23)
[2024-03-16 16:39] LABS: INR 2.65 (0.83-1.09); PROTHROMBIN TIME (PATIENT) 29.1 SEC (9.7-13.0)
[2024-03-16] MEDS: LIDOCAINE PATCH REMOVAL MC SCH (21:24)
[2024-03-17] MEDS: ACETAMINOPHEN 325 MG TABLET (FP) PO PRN (09:43)
[2024-03-18 09:54] LABS: INR 3.04 (0.83-1.09); PROTHROMBIN TIME (PATIENT) 33.3 SEC (9.7-13.0)
[2024-03-18 18:50] LABS: INR 3.1 (0.83-1.09); PROTHROMBIN TIME (PATIENT) 33.9 SEC (9.7-13.0)
[2024-03-18 18:52] LABS: INR 3.09 (0.83-1.09); PROTHROMBIN TIME (PATIENT) 33.8 SEC (9.7-13.0)
[2024-03-19] MEDS ORDERED: CEPHALEXIN MONOHYDRATE 500 MG CAPSULE (UD) PO SCH (12:34)
[2024-03-19 15:01] VITALS: BP 160/70; PULSE 64; RESP 20; TEMP 98.1
[2024-03-19] MEDS: CEPHALEXIN MONOHYDRATE 500 MG CAPSULE (UD) PO SCH (15:02)
[2024-03-19 17:39] LABS: INR 3.12 (0.83-1.09); PROTHROMBIN TIME (PATIENT) 34.7 SEC (9.7-13.0)
[2024-03-20] MEDS ORDERED: WARFARIN NA 5 MG TABLET PO SCH (18:00)
== END 2024-03-19 17:45 | disposition home or self-care (01) | DRG 871 ==
LOC: JER 22:29 → JERBED 03-06 01:30 → J4W 03-06 04:41 → J6S 03-13 18:25
PROVIDERS: ADMIT Internal Medicine; ATTEND Internal Medicine
DX: A40.9 Streptococcal sepsis, unspecified (principal); J18.9 Pneumonia, unspecified organism; I50.32 Chronic diastolic (congestive) heart failure; J44.0 Chronic obstructive pulmonary disease with (acute) lower respiratory infection; L03.116 Cellulitis of left lower limb; L03.115 Cellulitis of right lower limb; Z68.43 Body mass index [BMI] 50.0-59.9, adult; I11.0 Hypertensive heart disease with heart failure; E78.5 Hyperlipidemia, unspecified; J44.9 Chronic obstructive pulmonary disease, unspecified; I48.0 Paroxysmal atrial fibrillation; I25.10 Atherosclerotic heart disease of native coronary artery without angina pectoris; I25.2 Old myocardial infarction; G47.33 Obstructive sleep apnea (adult) (pediatric); E87.6 Hypokalemia; E66.01 Morbid (severe) obesity due to excess calories; G40.909 Epilepsy, unspecified, not intractable, without status epilepticus
CPT/HCPCS: 0241U-QW; 36415; 71045-TC-FY; 72050-TC-FY; 72125-TC; 80048; 80053; 81003; 82803; 83605; 83735; 83880; 84484; 85025; 85610; 85651; 85730; 86140; 87040; 87086; 87186; 87899; 93005; 93010; 93306-TC; 99285-25; E0186; J0131